=== PATIENT | male | born 1960 | race Caucasian/White ===

== ENCOUNTER 2021-10-04 10:54 | Inpatient (IN) ==
[2021-10-04 11:26] LABS: Basophils # (auto) 0.06 K/uL (0-0.2); Basophils % (auto) 0.5 %; Eosinophils # (auto) 0.03 K/uL (0-0.50); Eosinophils % (auto) 0.3 %; Immature Granulocytes # (auto) 0.13 K/uL (0.00-0.02); Immature Granulocytes % (auto) 1.2 %; Lymphocytes # (auto) 1.43 K/uL (1.2-3.4); Lymphocytes % (auto) 12.7 %; Mean Corpuscular Hemoglobin 30.9 pg (25.0-34.0); Mean Corpuscular Volume 96.5 fL (80.0-100.0); Mean Platelet Volume 9.5 fL (9.4-12.4); Monocytes # (auto) 1.09 K/uL (0.24-0.82); Monocytes % (auto) 9.7 %; Neutrophils # (auto) 8.54 K/uL (1.4-6.5); Neutrophils % (auto) 75.6 %; Platelet Count 280 K/uL (130-400); RDW Coefficient of Variation 18.6 % (11.5-14.5); RDW Standard Deviation 65.6 fL (36.4-46.3); Red Blood Count 2.59 M/uL (4.63-6.08); White Blood Count 11.28 K/ul (4.8-10.8)
--- NOTE | 2021-10-04 11:27 | Emergency Department Note ---
Impression & Plan Cholangiocarcinoma, Perihepatic abscess, Fall, Weakness, Pleural effusion, Anemia ED Provider Note NAME: SUSANNE WHITAKER AGE: 61 SEX: M : 1960 ARRIVES VIA: Walk-In INFORMANT: Patient ED PROVIDER(S): Julio Jain DO CHIEF COMPLAINT: weakness and leg swelling HPI: Patient is a 61-year-old male who presents the ER with a past medical history of cholangiocarcinoma, peritoneal carcinoma, hypertension who has stopped chemo and recently discharged from [facility] following being diagnosed with perihepatic abscesses and having IR drainage ertapenem and vancomycin through his right PICC line. He was discharged yesterday from [facility]. Upon getting home yesterday he fell. He had to have EMS help him get up from the ground. He is unable to take care of himself and consequently brought him in. He did not hit his head or neck. He denies any head or neck pain. No chest pain or shortness of breath. He admits to pain at the site of the drain placement but notes that has been unchanged since the surgery. Denies any new nausea or vomiting. No dysuria urgency or frequency. He does feel weak in the bilateral legs. He admits to the significant swelling in his legs preventing him from putting shoes on as he has to walk with modified shoes to help him get around. ROS: See above HPI for pertinent positives & negatives. A total of 10 systems reviewed and were otherwise negative. PAST MEDICAL HISTORY:See Below PAST SURGICAL HISTORY:See Below FAMILY HISTORY:See Below SOCIAL HISTORY:See Below HOME MEDICATIONS:See Below ALLERGIES:See Below VITALS:See Below PHYSICAL EXAMINATION: GENERAL: Sitting up in bed, alert, chronically ill-appearing, disheveled EYE EXAM: normal conjunctiva. PERRL and EOM's grossly intact. OROPHARYNX: no exudate, no erythema, lips, buccal mucosa, and tongue normal and mucous membranes are moist NECK: supple, no nuchal rigidity, no adenopathy, non-tender LUNGS: Clear to auscultation. Normal chest wall mechanics HEART: no murmurs, S1 normal and S2 normal ABDOMEN: abdomen soft, non-tender, normo-active bowel sounds, no masses, no rebound or guarding. BACK: Back is symmetrical on inspection and there is no deformity, no midline tenderness, no CVA tenderness. SKIN: no rashes and no bruising UPPER EXTREMITIES: upper extremities are grossly normal. LOWER EXTREMITIES: No pitting edema. NEURO EXAM: Normal sensorium, cranial nerves II-XII grossly intact, normal speech, no gross weakness of arms, no gross weakness of legs. MEDICAL DECISION MAKING: Patient is a 61-year-old male who presents ER for above-stated complaint. IV was established blood work was obtained. Labs show mild leukocytosis of 11,000 and mild anemia at 8. Hemoglobin of 8 is fairly consistent with the previous and [facility] system. BMP along with LFTs was unremarkable. Calcium was low. Troponin was negative. Lipase was normal. Chest x-ray with pleural effusion. X-ray of the pelvis was unremarkable. Patient does need placement and was just discharged from [facility]. Discussed with hospitalist for further evaluation as we are unable to place from the ER. Triage Nursing notes reviewed. Limited review of prior medical records performed Vital Signs: reviewed and remarkable for no significant abnormalities Differential diagnosis: Infection, dehydration, metabolic abnormality, hypo/hyperglycemia, electrolyte disturbance, anemia, hypoxia, cardiac sources, intracerebral event, toxicologic, neurologic, as well as other pathologies. ER treatment provided: See below Diagnostics interpreted by me: ECG: Sinus rhythm rate of 61 Left axis No PVCs QTC 483 Cardiac Monitoring: An order was placed for continuous cardiac monitoring. The monitor shows a rate of 82 with sinus rhythm. Laboratory studies: As stated above and show below. Imaging studies: X-ray of the pelvis and chest show pleural effusion Consultation(s): Discussed with hospitalist for further evaluation Procedures: none Critical Care: None Past Med/Surg History Medical History (Updated 10/04/21 @ 15:24 by Julio Jain DO) Arthritis Cholangiocarcinoma Epilepsy Hypertension Obesity Perihepatic abscess Peritoneal carcinoma Pre-diabetes Psoriasis Psoriatic arthropathy Surgical History (Updated 10/04/21 @ 09:20 by Estelita Robles RN) History of ERCP History of total left knee replacement History of total right knee replacement Hx of colonoscopy Hx of colonoscopy Family History (Updated 10/04/21 @ 13:13 by Ericka Kennedy PA-C) Father PAD (peripheral artery disease) Social History (Updated 10/04/21 @ 13:13 by Ericka Kennedy PA-C) Smoking Status: Never smoker Hx Alcohol Use: No Hx Substance Use: No Preferred Language: Czech Feels Safe at Home: No Allergies Allergies Allergy/AdvReac Type Severity Reaction Status Date / Time No Known Allergies Allergy Unverified 10/04/21 08:44 Home Meds Home Medications Medication Instructions Recorded Confirmed acetaminophen 500 mg tablet 500 mg PO QID PRN 10/04/21 10/04/21 famotidine 20 mg tablet 20 mg PO DAILY 10/04/21 10/04/21 oxycodone 10 mg tablet,extended 10 mg PO Q8 PRN 10/04/21 10/04/21 release,12 hr Results & Data (ED) Vital Signs Vital Signs - 24 hr 10/04/21 10:57 10/04/21 11:29 10/04/21 14:55 Temperature 36.2 C L Temperature Source Temporal Artery Scan Pulse Rate 89 Respiratory Rate 16 Blood Pressure 118/72 Blood Pressure Mean 87 Blood Pressure Position Sitting Pulse Oximetry 96 96 96 Oxygen Delivery Method Room Air Room Air Room Air Sepsis Recent Fever Within 48 Hours No Sepsis New/Unexplained Change in Mental Status No Sepsis Action Taken by Nursing No Action Required Laboratory Data Result diagrams: 10/04/21 11:15 10/04/21 11:15 Lab Results 10/04/21 10/04/21 10/04/21 Range/Units 11:15 11:15 12:10 WBC 11.28 H (4.8-10.8) K/ul RBC 2.59 L (4.63-6.08) M/uL Hgb 8.0 L (14.0-18.0) g/dl Hct 25.0 L (40.1-51.0) % MCV 96.5 (80.0-100.0) fL MCH 30.9 (25.0-34.0) pg MCHC 32.0 (32.0-36.0) g/dL RDW Std Deviation 65.6 H (36.4-46.3) fL RDW Coeff of [place] 18.6 H (11.5-14.5) % Plt Count 280 (130-400) K/uL MPV 9.5 (9.4-12.4) fL Immature Gran % (Auto) 1.2 % Neut % (Auto) 75.6 % Lymph % (Auto) 12.7 % [place] % (Auto) 9.7 % Eos % (Auto) 0.3 % Baso % (Auto) 0.5 % Neut # (Auto) 8.54 H (1.4-6.5) K/uL Lymph # (Auto) 1.43 (1.2-3.4) K/uL [place] # (Auto) 1.09 H (0.24-0.82) K/uL Eos # (Auto) 0.03 (0-0.50) K/uL Baso # (Auto) 0.06 (0-0.2) K/uL Immature Gran # (Auto) 0.13 H (0.00-0.02) K/uL Sodium 135 L (136-145) mmol/L Potassium 3.8 (3.5-5.1) mmol/L Chloride 107 (98-107) mmol/L Carbon Dioxide 24 (21-32) mmol/L Anion Gap 4 (3-11) BUN 13 (6-23) mg/dl Creatinine 0.86 (0.6-1.4) mg/dl Est Cr Clr Drug Dosing Not Reportable Est GFR ( Amer) 108.5 ml/min Est GFR (Non-Af Amer) 93.6 ml/min BUN/Creatinine Ratio 15.1 (10-20) Glucose 85 (70-99(Fasting)) mg/dl Calcium 7.6 L (8.5-10.1) mg/dl Total Bilirubin 0.6 (0.2-1.0) mg/dl AST 53 H (13-39) U/L ALT 30 (7-52) U/L Alkaline Phosphatase 133 H (34-104) U/L Troponin I High Sens 7.4 (0-20) pg/ml B-Natriuretic Peptide (0-100) pg/ml Total Protein 6.9 (6.0-8.3) gm/dl Albumin 1.8 L (3.4-5.0) gm/dl Globulin 5.1 H (2.5-4.0) gm/dl Albumin/Globulin Ratio 0.4 L (0.9-2) Lipase 17 (11-82) U/L SARS-CoV-2, RNA, NAAT NEGATIVE (NEGATIVE) 10/04/21 Range/Units 12:51 WBC (4.8-10.8) K/ul RBC (4.63-6.08) M/uL Hgb (14.0-18.0) g/dl Hct (40.1-51.0) % MCV (80.0-100.0) fL MCH (25.0-34.0) pg MCHC (32.0-36.0) g/dL RDW Std Deviation (36.4-46.3) fL RDW Coeff of [place] (11.5-14.5) % Plt Count (130-400) K/uL MPV (9.4-12.4) fL Immature Gran % (Auto) % Neut % (Auto) % Lymph % (Auto) % [place] % (Auto) % Eos % (Auto) % Baso % (Auto) % Neut # (Auto) (1.4-6.5) K/uL Lymph # (Auto) (1.2-3.4) K/uL [place] # (Auto) (0.24-0.82) K/uL Eos # (Auto) (0-0.50) K/uL Baso # (Auto) (0-0.2) K/uL Immature Gran # (Auto) (0.00-0.02) K/uL Sodium (136-145) mmol/L Potassium (3.5-5.1) mmol/L Chloride (98-107) mmol/L Carbon Dioxide (21-32) mmol/L Anion Gap (3-11) BUN (6-23) mg/dl Creatinine (0.6-1.4) mg/dl Est Cr Clr Drug Dosing Est GFR ( Amer) ml/min Est GFR (Non-Af Amer) ml/min BUN/Creatinine Ratio (10-20) Glucose (70-99(Fasting)) mg/dl Calcium (8.5-10.1) mg/dl Total Bilirubin (0.2-1.0) mg/dl AST (13-39) U/L ALT (7-52) U/L Alkaline Phosphatase (34-104) U/L Troponin I High Sens (0-20) pg/ml B-Natriuretic Peptide 48 (0-100) pg/ml Total Protein (6.0-8.3) gm/dl Albumin (3.4-5.0) gm/dl Globulin (2.5-4.0) gm/dl Albumin/Globulin Ratio (0.9-2) Lipase (11-82) U/L SARS-CoV-2, RNA, NAAT (NEGATIVE) Administered Medications Vancomycin HCl 2,250 mg/ (Sodium Chloride) 545 mls @ 200 mls/hr IV NOW ONE Stop: 10/04/21 15:57 Last Admin: 10/04/21 14:19 Dose: 200 mls/hr Documented by: [id number] Discontinued Medications Ertapenem (Invanz) 10 mls @ 2 mls/min IV NOW STA Stop: 10/04/21 11:45 Last Admin: 10/04/21 12:02 Dose: 2 mls/min Documented by: [id number] Imaging Data Radiologist's Impression: Pelvis X-Ray 10/04/21 11:12 XR pelvis 1-2V routine CLINICAL HISTORY: fall. Right-sided pelvic pain COMPARISON STUDY: No previous studies for comparison. TECHNIQUE: [2 AP views of the pelvis FINDINGS: There is no evidence for an acute fracture. However, the femoral necks or not elongated as the legs were not in internal rotation. The hip joint spaces are maintained bilaterally and the bones are in anatomic alignment. The SI joints are intact bilaterally. The remaining visualized bones of the pelvis are intact. No focal soft tissue abnormalities identified. IMPRESSION: 1. No acute abnormality. However, if pain persists, CT of the pelvis could be obtained for further evaluation. ACT 112: Negative or not required by law. Electronically signed by: Rory Shaffer M.D. 10/04/2021 11:55 AM Chest X-Ray 10/04/21 11:13 XR chest 1V portable CLINICAL HISTORY: Weakness with leg swelling. Evaluate for congestive heart failure. COMPARISON STUDY: No previous studies for comparison. TECHNIQUE: 1 view of the chest FINDINGS: Single frontal view of the chest demonstrates the cardiomediastinal silhouette to be within normal limits. There is evidence for a moderate size right pleural effusion with compressive atelectasis/collapse involving the right middle and right lower lobes. Mild central vascular congestion is also present. There is no evidence for left pleural effusion. No confluent alveolar opacities are identified. There is no acute osseous pathology. IMPRESSION: 1. Moderate size right pleural effusion with compressive atelectasis/collapse involving the right middle and right lower lobes. 2. Mild central vascular congestion. ACT 112: Negative or not required by law. Electronically signed by: Rory Shaffer M.D. 10/04/2021 11:56 AM Discharge Plan Visit Data Chief Complaint: Neuro Symptoms/Deficit Stated Complaint: FALLS,CAN'T WALK, CAN'T STAND,HX OF SEPSIS ED Provider: Julio Jain Discharge Problem: Cholangiocarcinoma, Perihepatic abscess, Fall, Weakness, Pleural effusion, Anemia Discharge Instructions Interventions: ED Discharge Assessment Last Done: 10/04/21 14:55
[2021-10-04] MEDS ORDERED: ERTAPENEM SODIUM 10 ML IV STA (11:41)
[2021-10-04 11:50] LABS: Alanine Aminotransferase 30 U/L (7-52); Albumin Globulin Ratio 0.4 (0.9-2); Albumin Level 1.8 gm/dl (3.4-5.0); Alkaline Phosphatase 133 U/L (34-104); Anion Gap 4 (3-11); Aspartate Aminotransferase 53 U/L (13-39); BUN Creatinine Ratio 15.1 (10-20); Bilirubin,Total 0.6 mg/dl (0.2-1.0); Blood Urea Nitrogen 13 mg/dl (6-23); Calcium 7.6 mg/dl (8.5-10.1); Carbon Dioxide 24 mmol/L (21-32); Chloride 107 mmol/L (98-107); Est GFR (African American) 108.5 ml/min; Est GFR (Non-African American) 93.6 ml/min; Globulin 5.1 gm/dl (2.5-4.0); Glucose 85 mg/dl (70-99(Fasting)); Lipase 17 U/L (11-82); Potassium 3.8 mmol/L (3.5-5.1); Sodium 135 mmol/L (136-145); Total Protein 6.9 gm/dl (6.0-8.3)
[2021-10-04 11:56] LABS: Troponin I High Sensitivity 7.4 pg/ml (0-20)
--- NOTE | 2021-10-04 11:57 | XRay Report ---
XR pelvis 1-2V routine CLINICAL HISTORY: fall. Right-sided pelvic pain COMPARISON STUDY: No previous studies for comparison. TECHNIQUE: [2 AP views of the pelvis FINDINGS: There is no evidence for an acute fracture. However, the femoral necks or not elongated as the legs w ere not in internal rotation. The hip joint spaces are maintained bilaterally and the bones are in an atomic alignment. The SI joints are intact bilaterally. The remaining visualized bones of the pelvis are intact. No focal soft tissue abnormalities identified. IMPRESSION: 1. No acute abnormality. However, if pain persists, CT of the pelvis could be obtained for further ev aluation. ACT 112: Negative or not required by law. Electronically signed by: Rory Shaffer M.D. 10/04/2021 11:55 AM
--- NOTE | 2021-10-04 11:58 | XRay Report ---
XR chest 1V portable CLINICAL HISTORY: Weakness with leg swelling. Evaluate for congestive heart failure. COMPARISON STUDY: No previous studies for comparison. TECHNIQUE: 1 view of the chest FINDINGS: Single frontal view of the chest demonstrates the cardiomediastinal silhouette to be within normal li mits. There is evidence for a moderate size right pleural effusion with compressive atelectasis/colla pse involving the right middle and right lower lobes. Mild central vascular congestion is also presen t. There is no evidence for left pleural effusion. No confluent alveolar opacities are identified. Th ere is no acute osseous pathology. IMPRESSION: 1. Moderate size right pleural effusion with compressive atelectasis/collapse involving the right mid dle and right lower lobes. 2. Mild central vascular congestion. ACT 112: Negative or not required by law. Electronically signed by: Rory Shaffer M.D. 10/04/2021 11:56 AM
[2021-10-04] MEDS ORDERED: VANCOMYCIN CONSULT ACTIVE PRN (13:14)
[2021-10-04] MEDS ORDERED: VANCOMYCIN HCL 2,250 MG in SODIUM CHLORIDE 0.9% 500 ML IV ONE (13:14)
--- NOTE | 2021-10-04 13:19 | History & Physical Report ---
Date of Service October 04, 2021 Assessment & Plan (1) Fall: (2) Weakness: (3) Hypoalbuminemia: (4) Anemia: (5) Bilateral lower extremity edema: (6) Pleural effusion: Plan: Patient presented with fall s/p weakness related to recent perihepatic abscess drainage. He is unable to take care of himself at this time due to severe weakness. Admit for Obs and probable placement CM referral placed. Patient also noted to have severe edema on admission with very low albumin. Vascular congestion seen on CXR without history of CHF. Patient has been on recent chemotherapy for cholangiocarcinoma and peritoneal carcinoma. Will check BNP and Echocardiogram. Start Lasix 20 mg IV x 1 dose. Start Albumin Q8h x 2 days. Reassess fluid level in AM Recheck BMP, CBC, Mag, Phos in AM PT/OT Continue to monitor BP. Was previously on lisinopril, but taken off during hospitalization. If BP begins to climb, consider restarting (7) Cholangiocarcinoma: (8) Peritoneal carcinoma: (9) Perihepatic abscess: Plan: Continue to hold chemotherapy agents as planned by [facility] while active infection Continue Ertapenem and Vancomycin per [facility] ID via PICC line Continue routine care of IR drain and PICC line (10) DVT prophylaxis: Plan: SQ Heparin History of Present Illness Chief Complaint: Weakness, fall Primary Care Provider: Murtaza Bazan DO Patient is a 61 yo male with recent history of cholangiocarcinoma diagnosed earlier this year along with peritoneal carcinoma. Today, he presented to the ER after being at home and falling last night. He stood up off of the couch at home, and he fell on his bottom. His feet went out from under him, but he did not have a syncopal episode. He did not hit his head. His buttocks does not hurt where he fell. He fell onto carpet. He notes that his feet have been very swollen since he got home. He recently was seen at [place] [facility] for abdominal pain on 09/23. He had a CT scan done which showed the perihepatic abscess. He was then transferred to [place] for IR drainage. He had the abscess drained, and culture grew MRSA. He required second drainage. He was discharged home from [facility] yesterday morning with a PICC line and plan for abx at [facility]. He has been weak/tired since prior admission, and even more when he got home. He has had some mild dry feeling in his throat but no sore throat or trouble swallowing. No chest pain, palpitations. He does have some right sided abdominal pain into the mid abdomen where his IR drain is located and where the abscess was. No dysuria. No diarrhea or constipation- he has been taking Miralax. No calf pain B/L. He does have a scratch on his back as well s/p fall. No other injury. Since admission, note that his CXR showed moderate right pleural effusion with atelectasis in the RML and RLL. Mild vascular congestion noted as well. His friend, Stacie ([phone]) is at the bedside with him. He would like her to be his POA if needed. Allergies Allergy/AdvReac Type Severity Reaction Status Date / Time No Known Allergies Allergy Unverified 10/04/21 08:44 Home Medications Medication Instructions Recorded Confirmed Type acetaminophen 500 mg tablet 500 mg PO QID PRN 10/04/21 10/04/21 History famotidine 20 mg tablet 20 mg PO DAILY 10/04/21 10/04/21 History oxycodone 10 mg tablet,extended 10 mg PO Q8 PRN 10/04/21 10/04/21 History release,12 hr Past Med/Surg History Medical History (Updated 10/04/21 @ 15:24 by Julio Jain DO) Arthritis Cholangiocarcinoma Epilepsy Hypertension Obesity Perihepatic abscess Peritoneal carcinoma Pre-diabetes Psoriasis Psoriatic arthropathy Surgical History (Updated 10/04/21 @ 09:20 by Estelita Robles RN) History of ERCP History of total left knee replacement History of total right knee replacement Hx of colonoscopy Hx of colonoscopy Family History (Updated 10/04/21 @ 13:13 by Ericka Kennedy PA-C) Father PAD (peripheral artery disease) Social History (Updated 10/04/21 @ 13:13 by Ericka Kennedy PA-C) Smoking Status: Former smoker Hx Alcohol Use: No Hx Substance Use: No Preferred Language: Khmer Communication Ability: Effective Geophysical Support Specialist Required: No Beliefs That Will Affect Care: None Current Living Situation: Alone Feels Safe at Home: Yes Safety Concerns: Feels Safe At This Time Assistive Devices: Cane Review of Systems Review of Systems: All others negative except mentioned in HPI Physical Exam Physical Exam: See attending's addendum for physical exam findings. Results & Data Results & Data ([facility]) Vital Signs (Past 12 Hours) Vital Signs Temp Pulse Resp BP Pulse Ox 10/04/21 11:29 96 10/04/21 10:57 36.2 C L 89 16 118/72 96 Laboratory Results Laboratory Results - last 24 hr 10/04/21 10/04/21 10/04/21 11:15 11:15 12:10 WBC 11.28 H RBC 2.59 L Hgb 8.0 L Hct 25.0 L MCV 96.5 MCH 30.9 MCHC 32.0 RDW Std Deviation 65.6 H RDW Coeff of [place] 18.6 H Plt Count 280 MPV 9.5 Immature Gran % (Auto) 1.2 Neut % (Auto) 75.6 Lymph % (Auto) 12.7 [place] % (Auto) 9.7 Eos % (Auto) 0.3 Baso % (Auto) 0.5 Neut # (Auto) 8.54 H Lymph # (Auto) 1.43 [place] # (Auto) 1.09 H Eos # (Auto) 0.03 Baso # (Auto) 0.06 Immature Gran # (Auto) 0.13 H Sodium 135 L Potassium 3.8 Chloride 107 Carbon Dioxide 24 Anion Gap 4 BUN 13 Creatinine 0.86 Est Cr Clr Drug Dosing Not Reportable Est GFR ( Amer) 108.5 Est GFR (Non-Af Amer) 93.6 BUN/Creatinine Ratio 15.1 Glucose 85 Calcium 7.6 L Total Bilirubin 0.6 AST 53 H ALT 30 Alkaline Phosphatase 133 H Troponin I High Sens 7.4 B-Natriuretic Peptide Total Protein 6.9 Albumin 1.8 L Globulin 5.1 H Albumin/Globulin Ratio 0.4 L Lipase 17 SARS-CoV-2, RNA, NAAT NEGATIVE 10/04/21 12:51 WBC RBC Hgb Hct MCV MCH MCHC RDW Std Deviation RDW Coeff of [place] Plt Count MPV Immature Gran % (Auto) Neut % (Auto) Lymph % (Auto) [place] % (Auto) Eos % (Auto) Baso % (Auto) Neut # (Auto) Lymph # (Auto) [place] # (Auto) Eos # (Auto) Baso # (Auto) Immature Gran # (Auto) Sodium Potassium Chloride Carbon Dioxide Anion Gap BUN Creatinine Est Cr Clr Drug Dosing Est GFR ( Amer) Est GFR (Non-Af Amer) BUN/Creatinine Ratio Glucose Calcium Total Bilirubin AST ALT Alkaline Phosphatase Troponin I High Sens B-Natriuretic Peptide 48 Total Protein Albumin Globulin Albumin/Globulin Ratio Lipase SARS-CoV-2, RNA, NAAT Diagnostic Findings CXR: IMPRESSION: 1. Moderate size right pleural effusion with compressive atelectasis/collapse involving the right middle and right lower lobes. 2. Mild central vascular congestion. Pelvic XR: IMPRESSION: 1. No acute abnormality. However, if pain persists, CT of the pelvis could be obtained for further evaluation. Supervising Physician Co-Signing Physician Notes 61 yo M w/ PMH of cholangiocarcinoma/peritoneal carcinoma presented 10/04 to our ED w/ c/o fall yesterday and weakness/unable to take care of self. He was discharged yesterday from [place] on IV antibiotic after IR drainage of his hepatic abscess and at home he fell on buttocks/denies hitting his head. Patient also complains of swelling BLE since last week. He reports being tired and weak. Admitting CXR with vascular congestion, BLE edema 2-3+, hypoalbuminemia, normal BNP. Adding albumin, giving IV Lasix, consider IV Lasix in a.m. after clinical assessment. Getting echo. Telemetry monitoring. Weak/tired: PT/OT, likely need placement Hepatic abscess on antibiotics from [place], will continue vancomycin and ertapenem. Patient to follow-up with ID as an outpatient. Follow-up labs in a.m., CM consulted for placement. Follow-up with oncology as an outpatient. Upon Exam GENERAL: Alert and oriented x3. NAD, on RA. Obese HEENT: No pallor, no icterus. Pupils equal, round and reactive to light. Oral mucosa moist. NECK: No JVD, no neck masses. HEART: S1 and S2 heard. Regular rate and rhythm. No murmur, no gallop. RESPIRATORY SYSTEM: Normal AP diameter. No accessory muscle use. No wheezing, no crackles. decreased Rt mid and lower lungs breath sounds. ABDOMEN: Soft, bowel sounds present, nontender, no distention. Rt hepatic drain w/ minimal erythema at port of entry, no significant tenderness. Pus and serous hepatic drain approx 40 ml noted in the bag. CENTRAL NERVOUS SYSTEM: No facial droop. Speech is clear. Obeys simple commands. Moves extremities. EXTREMITIES: 2-3+ BLE edema, no erythema seen. b/l hands with psoriatic arthritic changes. I have seen and examined the patient and have discussed the case with the provider above. I agree with the assessment and plan as stated.
[2021-10-04] MEDS ORDERED: FUROSEMIDE INJ 20 MG/2 ML VIAL IV ONE ×2 (13:27→16:00)
[2021-10-04] MEDS ORDERED: ALUMINUM/MAGNESIUM SUSP 30 ML UDC PO PRN (13:28)
[2021-10-04] MEDS: ACETAMINOPHEN 325 MG TAB PO PRN ×2 (15:42→23:04)
[2021-10-04] MEDS: ALBUMIN 25% 100 mL 25 GM/100 ML VIAL IV SCH ×2 (17:07→23:08)
--- NOTE | 2021-10-04 17:56 | Pharmacy Report ---
Pharmacy PK ABX Note - Date of Service October 04, 2021 - Assessment and Plan Assessment 61 year old M receiving vancomycin and ertapenem for treatment of post-ERCP liver abscess (MRSA and mixed aerobic anaerobic milady). Patient recently diagnosed with metastatic cholangiocarcinoma (delaying chemotherapy at this time in light of infection). Recently hospitalized at [facility] in [place] (09/24-10/03/21). Vancomycin/ertapenem initiated during that time by ID with recommendations to continue vancomycin 2 g IV q24h and ertapenem 1 g IV q24h as an outpatient. Unfortunately, patient received both doses of vancomycin/ertapenem in the [facility] this morning and then given an additional dose of each upon arrival to ED this afternoon. Pertinent microbiologic data includes: liver abscess (09/24) - MRSA. Day # 9 of antimicrobial therapy (continued from prior hospitalizat ion/outpatient setting). Treatment to be continued until 11/09/21 per [facility] ID. Plan Vancomycin * In light of inadvertent additional dose of vancomycin in ED, will hold off on ordering maintenance dose of vancomycin and will obtain random level tomorrow morning to help guide ongoing dosing. Ertapenem * Discussed with hospitalist, will time out next dose of ertapenem slightly to be given tomorrow afternoon. Pharmacy will continue to follow and will adjust dose/frequency as necessary. Thank you. Pharmacy has transitioned to AUC monitoring for vancomycin. AUC/PEDRO is the preferred PK/PD target and is associated with decreased risk of nephrotoxicity compared to traditional trough targets.
[2021-10-04 22:33] LABS: Hematocrit (blood only) 25.1 % (40.1-51.0); Hemoglobin 8.1 g/dl (14.0-18.0)
[2021-10-04] MEDS: HEPARIN SOD 5,000 UNIT/0.5 ML VIAL SQ SCH (23:03)
[2021-10-05] MEDS: oxyCODONE HCL IR 5 MG TAB (IMMEDIATE RELEASE) PO PRN ×2 (04:25→23:41)
[2021-10-05] MEDS: ALBUMIN 25% 100 mL 25 GM/100 ML VIAL IV SCH ×3 (06:25→23:06)
[2021-10-05 06:50] LABS: Albumin Globulin Ratio 0.5 (0.9-2); Albumin Level 2.2 gm/dl (3.4-5.0); BUN Creatinine Ratio 15.7 (10-20); Bilirubin,Total 0.7 mg/dl (0.2-1.0); Calcium 7.6 mg/dl (8.5-10.1); Creatinine Clr Calc Pharmacy 125.9 ml/min; Est GFR (African American) 110.1 ml/min; Globulin 4.4 gm/dl (2.5-4.0); Magnesium 1.9 mg/dl (1.7-2.4); Phosphorus 3.2 mg/dl (2.5-4.9); Potassium 3.7 mmol/L (3.5-5.1); Total Protein 6.6 gm/dl (6.0-8.3)
[2021-10-05 07:14] LABS: Hematocrit (blood only) 23.7 % (40.1-51.0); Hemoglobin 7.6 g/dl (14.0-18.0); Mean Corpuscular Hemoglobin 31.1 pg (25.0-34.0); Mean Corpuscular Hgb Conc 32.1 g/dL (32.0-36.0); Mean Corpuscular Volume 97.1 fL (80.0-100.0); Mean Platelet Volume 10.1 fL (9.4-12.4); Platelet Count 257 K/uL (130-400); RDW Coefficient of Variation 18.3 % (11.5-14.5); RDW Standard Deviation 64.3 fL (36.4-46.3); Red Blood Count 2.44 M/uL (4.63-6.08); White Blood Count 9.25 K/ul (4.8-10.8)
[2021-10-05] MEDS: FAMOTIDINE 20 MG TAB PO SCH (08:13)
[2021-10-05] MEDS: ACETAMINOPHEN 325 MG TAB PO PRN ×2 (08:13→18:17)
[2021-10-05] MEDS: HEPARIN SOD 5,000 UNIT/0.5 ML VIAL SQ SCH ×2 (08:15→23:09)
--- NOTE | 2021-10-05 10:12 | Pharmacy Report ---
Pharmacy PK ABX Note - Date of Service October 05, 2021 - Assessment and Plan Assessment * 61 year old M receiving vancomycin and ertapenem for treatment of post-ERCP liver abscess (MRSA and mixed aerobic anaerobic milady). * Patient recently diagnosed with metastatic cholangiocarcinoma (delaying chemotherapy at this time in light of infection). Recently hospitalized at [facility] in [place] (09/24-10/03/21). Vancomycin/ertapenem initiated during that time by ID with recommendations to continue vancomycin 2 g IV q24h and ertapenem 1 g IV q24h as an outpatient. * Unfortunately, patient received both doses of vancomycin/ertapenem in the MTU this morning and then given an additional dose of each upon arrival to ED yesterday * Pertinent microbiologic data includes: liver abscess (09/24) - MRSA. * Day # 10 of antimicrobial therapy (continued from prior hospitalizatio n/outpatient setting). Treatment to be continued until 11/09/21 per [facility]. Vancomycin * Random level this AM was elevated, consistent with two doses yesterday. Will delay ongoing vancomycin until this afternoon, when level likely to be in the therapeutic range. Will then give small supplemental dose, meant to transition the patient back to the originally planned 2 g IV qAM dose, which is likely to produce a therapeutic AUC * Random level tomorrow AM to ensure adequate clearance prior to resuming prior dose Plan * Vancomycin 1000 mg IV x1 @1400 today * Random vancomycin level with AM labs * Vancomycin 2000 mg IV daily@09 ongoing starting tomorrow Pharmacy will continue to follow and will adjust dose/frequency as necessary. Thank you. Pharmacy has transitioned to AUC monitoring for vancomycin. AUC/PEDRO is the preferred PK/PD target and is associated with decreased risk of nephrotoxicity compared to traditional trough targets.
--- NOTE | 2021-10-05 11:44 | Communication Note ---
Date of Service: October 05, 2021 Flush the intra-abdominal drain with 10ml of sterile saline daily. Dr. Miley Sharma
--- NOTE | 2021-10-05 12:14 | Electrocardiogram Report ---
Test Reason : Blood Pressure : / mmHG Vent. Rate : 086 BPM Atrial Rate : 086 BPM P-R Int : 168 ms QRS Dur : 096 ms QT Int : 404 ms P-R-T Axes : 011 -22 007 degrees QTc Int : 483 ms Normal sinus rhythm Low voltage QRS Poor R wave progression, consider anterior MS vs. lead placement vs. LVH Abnormal ECG No previous ECGs available Confirmed by Wesley Solis ([id number]) on 10/05/2021 12:14:20 PM Referred By: REFERRED SELF Confirmed By:Michele Solis
--- NOTE | 2021-10-05 12:17 | Electrocardiogram Report ---
Test Reason : Blood Pressure : / mmHG Vent. Rate : 091 BPM Atrial Rate : 091 BPM P-R Int : 152 ms QRS Dur : 102 ms QT Int : 390 ms P-R-T Axes : 015 -06 019 degrees QTc Int : 479 ms Normal sinus rhythm Possible Inferior infarct , age undetermined Abnormal ECG When compared with ECG of 04-OCT-2021 11:24, (unconfirmed) No significant change was found Confirmed by Wesley Solis ([id number]) on 10/05/2021 12:17:29 PM Referred By: REFERRED SELF Confirmed By:Michele Solis
--- NOTE | 2021-10-05 13:54 | Hospitalist Progress Note ---
Date of Service October 05, 2021 Assessment & Plan (1) Perihepatic abscess: Plan: Admitted to [facility] on 09/24/2021 and discharged on 10/03/2021 Following IR drainage of perihepatic abscess He was discharged from [facility] on 10/03/2021 and was admitted with a fall secondary to weakness on 10/04/2021 at [facility] Has a PICC line and has been getting intravenous ertapenem and vancomycin which will be continued until 11/09/2021 Weekly CBC and BMP with vancomycin troughs will be done as an outpatient Instruction as per discharge summary Repeat CT tentatively at 4 weeks and will need IR follow-up for drain removal at that time If the drain output diminishes the CT can be done earlier than 4 weeks Not noted in the instructions that the drain should be flushed daily which is being done in this hospital Patient remains stable (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 Likely secondary to reactive from hepatic abscess Echo of the heart showed- EF of 60 to 65%, there is mild concentric LVH, and no significant valvular pathology (4) Fall: Plan: He is unable to take care of himself at this time due to severe weakness. Admit for Obs and probable placement PT OT for placement CM referral placed. (5) Weakness: Plan: Multifactorial Mainly secondary to carcinoma/chemotherapy/hepatic abscess History of hypertension Continue to monitor BP. Was previously on lisinopril, but taken off during hospitalization. If BP begins to climb, consider restarting (6) Hypoalbuminemia: (7) Anemia: (8) Bilateral lower extremity edema: Plan: Secondary to lack of mobility, hypoalbuminemia, decreased venous return but no heart failure (9) Peritoneal carcinoma: (10) DVT prophylaxis: Plan: SQ Heparin Admission and Anticipated Discharge Date Admission Date: October 05, 2021 Subjective 10/05/2021 The patient was seen and examined in medical telemetry unit He remains generally weak and lethargic but otherwise denies any significant symptoms Grossly edematous in the legs Denies any chest pain, abdominal pain, nausea or vomiting or any shortness of breath Review of Systems Review of Systems: All systems reviewed and are unremarkable except as noted below Gastrointestinal: Mild abdominal discomfort. Status post intra-abdominal drain in situ Neurologic: Generally weak and lethargic Physical Exam Physical Exam: Sitting on a chair with lethargy but denies any acute distress Constitutional: well developed, well nourished, + ill appearing and + obese Eyes: PERRL, conjunctivae normal, anicteric sclerae ENMT: external ear and nose normal, oropharynx normal Neck: trachea midline, no thyromegaly Respiratory: no respiratory distress Auscultation: + diminished lung sounds (Mostly on the right lower lung) and + crackles (Minimal crackles at the bases) Cardiovascular: Rate/Rhythm: regular rate and regular rhythm; not tachycardic Heart Sounds: normal S1 and normal S2; no murmur Extremities: + edema (2+ edema bilaterally) Gastrointestinal (Abdomen): Inspection/Auscultation: + abdomen distended and normal bowel sounds; + abdomen abnormal to inspection (Has right upper quadrant drain in situ) Musculoskeletal: No acute arthritis in any joint Neurologic: Alert, awake and oriented x3, generally very weak and lethargic Lymphatic: no cervical or axillary lymphadenopathy Results & Data Results & Data ([facility]) Vital Signs (Past 12 Hours) Vital Signs Temp Pulse Pulse Resp BP Pulse Ox 10/05/21 11:23 36.6 C 65 18 112/68 96 10/05/21 07:56 94 H 10/05/21 07:15 37.1 C 90 18 145/84 H 92 10/05/21 04:15 36.5 C 91 H 20 123/71 93 Laboratory Results Short CBC 10/04/21 10/05/21 Range/Units 22:20 05:14 WBC 9.25 (4.8-10.8) K/ul Hgb 8.1 L 7.6 L (14.0-18.0) g/dl Hct 25.1 L 23.7 L (40.1-51.0) % Plt Count 257 (130-400) K/uL BMP 10/05/21 05:14 Sodium 134 L Potassium 3.7 Chloride 105 Carbon Dioxide 26 BUN 13 Creatinine 0.83 Glucose 77 Calcium 7.6 L Liver Function 10/05/21 Range/Units 05:14 Total Bilirubin 0.7 (0.2-1.0) mg/dl AST 43 H (13-39) U/L ALT 24 (7-52) U/L Alkaline Phosphatase 125 H (34-104) U/L Albumin 2.2 L (3.4-5.0) gm/dl Medications Administered Current Inpatient Medications Acetaminophen (Acetaminophen 325 Mg Tab) 650 mg PO Q8H PRN PRN Reason: Pain or Fever Stop: 11/03/21 13:27 Last Admin: 10/05/21 08:13 Dose: 650 mg Documented by: Al Hydrox/Mg Hydrox/Simethicone (Aluminum/Magnesium Susp 30 Ml Udc) 15 ml PO Q4H PRN PRN Reason: Dyspepsia Stop: 11/03/21 13:27 Famotidine (Famotidine 20 Mg Tab) 20 mg PO DAILY AMANDA Stop: 11/04/21 08:59 Last Admin: 10/05/21 08:13 Dose: 20 mg Documented by: Heparin Sodium (Beef Lung) (Heparin 10 Unit/Ml 5 Ml Flush) 5 ml FLUSH PRN PRN PRN Reason: Flush Stop: 11/04/21 08:18 Heparin Sodium (Porcine) (Heparin Sod 5,000 Unit/0.5 Ml Vial) 5,000 units SQ Q12 AMANDA Stop: 11/03/21 20:59 Last Admin: 10/05/21 08:15 Dose: 5,000 units Documented by: Albumin Human (Albumin 25% 100 Ml) 25 gm in 100 mls @ 50 mls/hr IV Q8 AMANDA Stop: 10/06/21 07:59 Last Infusion: 10/05/21 08:33 Dose: Infused Documented by: Ertapenem 1,000 mg/ Syringe 10 mls @ 2 mls/min IV Q24H AMANDA Stop: 10/15/21 08:59 Vancomycin HCl 1,000 mg/ (Sodium Chloride) 270 mls @ 200 mls/hr IV DAILY@1400 ONE Stop: 10/05/21 15:20 Vancomycin HCl 2,000 mg/ (Sodium Chloride) 540 mls @ 200 mls/hr IV DAILY@0900 [facility] Stop: 10/16/21 08:59 Miscellaneous Information (Vancomycin Consult Active) 1 ea N/A UD PRN PRN Reason: Consult Stop: 11/03/21 13:13 Oxycodone HCl (Oxycodone Hcl Ir 5 Mg Tab (Immediate Release)) 5 mg PO Q8H PRN PRN Reason: MODERATE/SEVERE PAIN Stop: 10/18/21 17:30 Last Admin: 10/05/21 04:25 Dose: 5 mg Documented by: (1) Fall Encounter type: initial encounter Qualified Code(s): W19.XXXA - Unspecified fall, initial encounter (2) Anemia Anemia type: unspecified type Qualified Code(s): D64.9 - Anemia, unspecified
[2021-10-05] MEDS ORDERED: VANCOMYCIN HCL 1,000 MG in SODIUM CHLORIDE 0.9% 250 ML IV ONE (14:00)
[2021-10-05] MEDS: ERTAPENEM SODIUM 1,000 MG in SYRINGE 0 ML IV SCH (15:26)
[2021-10-05 18:35] LABS: Appearance Urine Clear (Clear); Bacteria Urine Automated Negative (Negative); Bilirubin Urine Negative (Negative); Blood Urine 1+ (Negative); Cast Urine Automated 0 /lpf (0-5); Color Urine Yellow; Glucose Urine UA Negative (Negative); Ketones Urine Negative (Negative); Leukocyte Esterase Urine Negative (Negative); Nitrite Urine Negative (Negative); Protein Urine Negative (Negative); Specific Gravity Urine 1.012 (1.000-1.030); Urobilinogen Urine Negative (Negative); pH Urine 6.5 (4.5-7.5)
[2021-10-06] MEDS: ACETAMINOPHEN 325 MG TAB PO PRN ×3 (05:07→23:38)
[2021-10-06] MEDS: ALBUMIN 25% 100 mL 25 GM/100 ML VIAL IV SCH (05:08)
[2021-10-06 07:51] LABS: Basophils # (auto) 0.06 K/uL (0-0.2); Basophils % (auto) 0.6 %; Eosinophils # (auto) 0.03 K/uL (0-0.50); Eosinophils % (auto) 0.3 %; Hematocrit (blood only) 24.4 % (40.1-51.0); Hemoglobin 7.9 g/dl (14.0-18.0); Immature Granulocytes # (auto) 0.07 K/uL (0.00-0.02); Immature Granulocytes % (auto) 0.8 %; Lymphocytes # (auto) 1.25 K/uL (1.2-3.4); Lymphocytes % (auto) 13.5 %; Mean Corpuscular Hgb Conc 32.4 g/dL (32.0-36.0); Mean Corpuscular Volume 95.7 fL (80.0-100.0); Mean Platelet Volume 10.1 fL (9.4-12.4); Monocytes # (auto) 0.89 K/uL (0.24-0.82); Monocytes % (auto) 9.6 %; Neutrophils # (auto) 6.97 K/uL (1.4-6.5); Neutrophils % (auto) 75.2 %; Platelet Count 242 K/uL (130-400); RDW Coefficient of Variation 17.8 % (11.5-14.5); RDW Standard Deviation 61.8 fL (36.4-46.3); Red Blood Count 2.55 M/uL (4.63-6.08); White Blood Count 9.27 K/ul (4.8-10.8)
[2021-10-06] MEDS: FAMOTIDINE 20 MG TAB PO SCH (08:00)
[2021-10-06] MEDS: HEPARIN SOD 5,000 UNIT/0.5 ML VIAL SQ SCH ×2 (08:00→20:21)
[2021-10-06] MEDS: VANCOMYCIN HCL 2,000 MG in SODIUM CHLORIDE 0.9% 500 ML IV SCH (08:23)
[2021-10-06 08:27] LABS: Albumin Globulin Ratio 0.7 (0.9-2); Albumin Level 2.8 gm/dl (3.4-5.0); BUN Creatinine Ratio 14.5 (10-20); Bilirubin,Total 0.7 mg/dl (0.2-1.0); Creatinine Clr Calc Pharmacy 135.2 ml/min; Est GFR (African American) 114.1 ml/min; Est GFR (Non-African American) 98.5 ml/min; Globulin 4.2 gm/dl (2.5-4.0); Magnesium 1.9 mg/dl (1.7-2.4); Potassium 3.8 mmol/L (3.5-5.1)
--- NOTE | 2021-10-06 08:49 | Pharmacy Report ---
Pharmacy PK ABX Note - Date of Service October 06, 2021 - Assessment and Plan Assessment * 61 year old M receiving vancomycin and ertapenem for treatment of post-ERCP liver abscess (MRSA and mixed aerobic anaerobic milady). * Patient recently diagnosed with metastatic cholangiocarcinoma (delaying chemotherapy at this time in light of infection). Recently hospitalized at [facility] in [place] (09/24-10/03/21). Vancomycin/ertapenem initiated during that time by ID with recommendations to continue vancomycin 2 g IV q24h and ertapenem 1 g IV q24h as an outpatient. * Unfortunately, patient received both doses of vancomycin/ertapenem in the MTU this morning and then given an additional dose of each upon arrival to ED yesterday * Pertinent microbiologic data includes: liver abscess (09/24) - MRSA. * Day # 11 of antimicrobial therapy (continued from prior hospitalizatio n/outpatient setting). Treatment to be continued until 11/09/21 per [facility] ID. Plan Vancomycin * Random level of 16.6 mcg/mL this am * Continue previous regimen of vanco 2000 mg IV q24h * Check next drug level on 10/08/21 with AM labs Ertapenem * Continue 1000 mg IV q24h Pharmacy will continue to follow and will adjust dose/frequency as necessary. Thank you. Pharmacy has transitioned to AUC monitoring for vancomycin. AUC/PEDRO is the preferred PK/PD target and is associated with decreased risk of nephrotoxicity compared to traditional trough targets.
[2021-10-06] MEDS ORDERED: FUROSEMIDE 40 MG/4 ML VIAL IV ONE (11:15)
--- NOTE | 2021-10-06 11:16 | Hospitalist Progress Note ---
Date of Service October 06, 2021 Assessment & Plan (1) Perihepatic abscess: Plan: Admitted to [facility] on 09/24/2021 and discharged on 10/03/2021 Following IR drainage of perihepatic abscess He was discharged from [place] on 10/03/2021 and was admitted with a fall secondary to weakness on 10/04/2021 at [facility] Has a PICC line and has been getting intravenous ertapenem and vancomycin which will be continued until 11/09/2021 Weekly CBC and BMP with vancomycin troughs will be done as an outpatient Kidney function and electrolytes are unremarkable Still draining pus from the hepatic abscess Instruction as per discharge summary Repeat CT tentatively at 4 weeks and will need IR follow-up for drain removal at that time If the drain output diminishes the CT can be done earlier than 4 weeks Not noted in the instructions that the drain should be flushed daily which is being done in this hospital Patient remains stable (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 Likely secondary to reactive from hepatic abscess Echo of the heart showed- EF of 60 to 65%, there is mild concentric LVH, and no significant valvular pathology (4) Fall: Plan: He is unable to take care of himself at this time due to severe weakness. Admit for Obs and probable placement PT OT for placement CM referral placed. (5) Weakness: Plan: Multifactorial Mainly secondary to carcinoma/chemotherapy/hepatic abscess History of hypertension Continue to monitor BP. Was previously on lisinopril, but taken off during hospitalization. If BP begins to climb, consider restarting (6) Hypoalbuminemia: (7) Anemia: (8) Bilateral lower extremity edema: Plan: Secondary to lack of mobility, hypoalbuminemia, decreased venous return but no heart failure Will try small doses of Lasix intravenously and monitor BMP for edema and pleural effusion which seems to be reactive (9) Peritoneal carcinoma: Plan: As above (10) DVT prophylaxis: Plan: SQ Heparin Admission and Anticipated Discharge Date Admission Date: October 05, 2021 Subjective 10/05/2021 The patient was seen and examined in medical telemetry unit He remains generally weak and lethargic but otherwise denies any significant s ymptoms Grossly edematous in the legs Denies any chest pain, abdominal pain, nausea or vomiting or any shortness of breath 10/06/2021 The patient was seen and examined in medical telemetry unit He remains stable, generally weak and complains to have swelling of the legs which has been ongoing Denies any abdominal distention, pain, nausea or vomiting No fever and no chills Review of Systems Review of Systems: All systems reviewed and are unremarkable except as noted below Gastrointestinal: Mild abdominal discomfort. Status post intra-abdominal drain in situ Neurologic: Generally weak and lethargic Physical Exam Physical Exam: Sitting on a chair with lethargy but denies any acute distress Constitutional: well developed, well nourished, + ill appearing and + obese Eyes: PERRL, conjunctivae normal, anicteric sclerae ENMT: external ear and nose normal, oropharynx normal Neck: trachea midline, no thyromegaly Respiratory: no respiratory distress Auscultation: + diminished lung sounds (Mostly on the right lower lung) and + crackles (Minimal crackles at the bases) Cardiovascular: Rate/Rhythm: regular rate and regular rhythm; not tachycardic Heart Sounds: normal S1 and normal S2; no murmur Extremities: + edema (2+ edema bilaterally) Gastrointestinal (Abdomen): Inspection/Auscultation: + abdomen distended and normal bowel sounds; + abdomen abnormal to inspection (Has right upper quadrant drain in situ) Musculoskeletal: No acute arthritis involving any joint Skin: Has right upper quadrant drain in situ Neurologic: normal touch/pain/proprioception and moves all extremities Generally weak and lethargic Lymphatic: no cervical or axillary lymphadenopathy Results & Data Results & Data ([facility]) Vital Signs (Past 12 Hours) Vital Signs Temp Pulse Pulse Resp BP Pulse Ox 10/06/21 09:09 85 10/06/21 07:29 36.8 C 90 20 129/73 96 10/06/21 02:56 36.8 C 90 18 136/75 90 Laboratory Results Short CBC 10/06/21 Range/Units 06:30 WBC 9.27 (4.8-10.8) K/ul Hgb 7.9 L (14.0-18.0) g/dl Hct 24.4 L (40.1-51.0) % Plt Count 242 (130-400) K/uL BMP 10/06/21 06:30 Sodium 135 L Potassium 3.8 Chloride 105 Carbon Dioxide 24 BUN 11 Creatinine 0.76 Glucose 80 Calcium 8.0 L Liver Function 10/06/21 Range/Units 06:30 Total Bilirubin 0.7 (0.2-1.0) mg/dl AST 39 (13-39) U/L ALT 20 (7-52) U/L Alkaline Phosphatase 113 H (34-104) U/L Albumin 2.8 L (3.4-5.0) gm/dl Urine 10/05/21 Range/Units 18:23 Urine Color Yellow Urine Appearance Clear (Clear) Urine pH 6.5 (4.5-7.5) Ur Specific Dairy 1.012 (1.000-1.030) Urine Protein Negative (Negative) Urine Glucose (UA) Negative (Negative) Medications Administered Current Inpatient Medications Acetaminophen (Acetaminophen 325 Mg Tab) 650 mg PO Q8H PRN PRN Reason: Pain or Fever Stop: 11/03/21 13:27 Last Admin: 10/06/21 05:07 Dose: 650 mg Documented by: Al Hydrox/Mg Hydrox/Simethicone (Aluminum/Magnesium Susp 30 Ml Udc) 15 ml PO Q4H PRN PRN Reason: Dyspepsia Stop: 11/03/21 13:27 Famotidine (Famotidine 20 Mg Tab) 20 mg PO DAILY AMANDA Stop: 11/04/21 08:59 Last Admin: 10/06/21 08:00 Dose: 20 mg Documented by: Furosemide (Furosemide 40 Mg/4 Ml Vial) 40 mg IV ONE ONE Stop: 10/06/21 11:16 Heparin Sodium (Beef Lung) (Heparin 10 Unit/Ml 5 Ml Flush) 5 ml FLUSH PRN PRN PRN Reason: Flush Stop: 11/04/21 08:18 Last Admin: 10/06/21 11:08 Dose: 5 ml Documented by: Heparin Sodium (Porcine) (Heparin Sod 5,000 Unit/0.5 Ml Vial) 5,000 units SQ Q12 AMANDA Stop: 11/03/21 20:59 Last Admin: 10/06/21 08:00 Dose: 5,000 units Documented by: Ertapenem 1,000 mg/ Syringe 10 mls @ 2 mls/min IV Q24H AMANDA Stop: 11/09/21 08:59 Last Admin: 10/05/21 15:26 Dose: 2 mls/min Documented by: Vancomycin HCl 2,000 mg/ (Sodium Chloride) 540 mls @ 200 mls/hr IV DAILY@0900 AMANDA Stop: 11/09/21 08:59 Last Infusion: 10/06/21 11:06 Dose: Infused Documented by: Miscellaneous Information (Vancomycin Consult Active) 1 ea N/A UD PRN PRN Reason: Consult Stop: 11/03/21 13:13 Oxycodone HCl (Oxycodone Hcl Ir 5 Mg Tab (Immediate Release)) 5 mg PO Q8H PRN PRN Reason: MODERATE/SEVERE PAIN Stop: 10/18/21 17:30 Last Admin: 10/05/21 23:41 Dose: 5 mg Documented by: (1) Fall Encounter type: initial encounter Qualified Code(s): W19.XXXA - Unspecified fall, initial encounter (2) Anemia Anemia type: unspecified type Qualified Code(s): D64.9 - Anemia, unspecified
[2021-10-06] MEDS: ERTAPENEM SODIUM 1,000 MG in SYRINGE 0 ML IV SCH (15:55)
[2021-10-07] MEDS: FAMOTIDINE 20 MG TAB PO SCH (07:53)
[2021-10-07] MEDS: HEPARIN SOD 5,000 UNIT/0.5 ML VIAL SQ SCH (07:53)
[2021-10-07] MEDS: VANCOMYCIN HCL 2,000 MG in SODIUM CHLORIDE 0.9% 500 ML IV SCH (07:56)
[2021-10-07 08:49] LABS: Albumin Globulin Ratio 0.6 (0.9-2); Albumin Level 2.6 gm/dl (3.4-5.0); BUN Creatinine Ratio 12.4 (10-20); Bilirubin,Total 0.7 mg/dl (0.2-1.0); Calcium 7.9 mg/dl (8.5-10.1); Creatinine Clr Calc Pharmacy 115.4 ml/min; Est GFR (Non-African American) 92.3 ml/min; Globulin 4.4 gm/dl (2.5-4.0); Potassium 3.6 mmol/L (3.5-5.1)
--- NOTE | 2021-10-07 15:26 | Hospitalist Progress Note ---
Date of Service October 07, 2021 Assessment & Plan (1) Perihepatic abscess: Plan: Admitted to [facility] on 09/24/2021 and discharged on 10/03/2021 Following IR drainage of perihepatic abscess He was discharged from [place] on 10/03/2021 and was admitted with a fall secondary to weakness on 10/04/2021 at [facility] Has a PICC line and has been getting intravenous ertapenem and vancomycin which will be continued until 11/09/2021 Weekly CBC and BMP with vancomycin troughs will be done as an outpatient Kidney function and electrolytes are unremarkable Still draining pus from the hepatic abscess Denies any abdominal pain, nausea and or vomiting Instruction as per discharge summary Repeat CT tentatively at 4 weeks and will need IR follow-up for drain removal at that time If the drain output diminishes the CT can be done earlier than 4 weeks Not noted in the instructions that the drain should be flushed daily which is being done in this hospital Patient remains stable Will ask PCP to arrange repeat CT as advised from [place] (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 Likely secondary to reactive from hepatic abscess Echo of the heart showed: EF of 60 to 65%, there is mild concentric LVH, and no significant valvular pathology Denies any shortness of breath at rest If he develops short of breath the fluid might need to be drained Will administer another dose of IV Lasix of 40 mg today and monitor BMP We will get a chest x-ray tomorrow (4) Fall: Plan: He is unable to take care of himself at this time due to severe weakness. Admit for Obs and probable placement PT OT for placement CM referral placed. (5) Weakness: Plan: Multifactorial Mainly secondary to carcinoma/chemotherapy/hepatic abscess History of hypertension Continue to monitor BP. Was previously on lisinopril, but taken off during hospitalization. If BP begins to climb, consider restarting (6) Hypoalbuminemia: (7) Anemia: (8) Bilateral lower extremity edema: Plan: Secondary to lack of mobility, hypoalbuminemia, decreased venous return but no heart failure Will try small doses of Lasix intravenously and monitor BMP for edema and pleural effusion which seems to be reactive Will repeat another dose of Lasix today (9) Peritoneal carcinoma: Plan: As above (10) DVT prophylaxis: Plan: SQ Heparin Admission and Anticipated Discharge Date Admission Date: October 05, 2021 Subjective 10/05/2021 The patient was seen and examined in medical telemetry unit He remains generally weak and lethargic but otherwise denies any significant symptoms Grossly edematous in the legs Denies any chest pain, abdominal pain, nausea or vomiting or any shortness of breath 10/06/2021 The patient was seen and examined in medical telemetry unit He remains stable, generally weak and complains to have swelling of the legs which has been ongoing Denies any abdominal distention, pain, nausea or vomiting No fever and no chills 10/07/2021 The patient was seen and examined in medical telemetry unit He has been stable and complains to have weakness Denies any abdominal pain nausea or vomiting His leg swelling seems to be a little better Review of Systems Review of Systems: All systems reviewed and are unremarkable except as noted below Gastrointestinal: Mild abdominal discomfort. Status post intra-abdominal drain in situ Neurologic: Generally weak and lethargic Physical Exam Physical Exam: Lying in bed without any acute distress Constitutional: well developed, well nourished, + ill appearing and + obese Eyes: PERRL, conjunctivae normal, anicteric sclerae ENMT: external ear and nose normal, oropharynx normal Neck: trachea midline, no thyromegaly Respiratory: no respiratory distress Auscultation: + diminished lung sounds (Mostly on the right lower lung) and + crackles (Minimal crackles at the bases) Cardiovascular: Rate/Rhythm: regular rate and regular rhythm; not tachycardic Heart Sounds: normal S1 and normal S2; no murmur Extremities: + edema (2+ edema bilaterally) Gastrointestinal (Abdomen): Inspection/Auscultation: + abdomen distended and normal bowel sounds; + abdomen abnormal to inspection (Has right upper quadrant drain in situ) Musculoskeletal: No acute arthritis involving any joint Neurologic: normal touch/pain/proprioception and moves all extremities Lymphatic: no cervical or axillary lymphadenopathy Results & Data Results & Data ([facility]) Vital Signs (Past 12 Hours) Vital Signs Temp Pulse Pulse Resp BP Pulse Ox 10/07/21 15:06 37.3 C 100 H 14 142/76 H 93 10/07/21 11:28 37.0 C 96 H 14 122/79 95 10/07/21 07:33 91 H 10/07/21 07:32 36.6 C 93 H 16 125/71 100 10/07/21 04:00 36.7 C 99 H 18 129/73 94 Laboratory Results [facility] 10/07/21 07:38 Sodium 136 Potassium 3.6 Chloride 104 Carbon Dioxide 26 BUN 11 Creatinine 0.89 Glucose 94 Calcium 7.9 L Liver Function 10/07/21 Range/Units 07:38 Total Bilirubin 0.7 (0.2-1.0) mg/dl AST 37 (13-39) U/L ALT 20 (7-52) U/L Alkaline Phosphatase 126 H (34-104) U/L Albumin 2.6 L (3.4-5.0) gm/dl Medications Administered Current Inpatient Medications Acetaminophen (Acetaminophen 325 Mg Tab) 650 mg PO Q8H PRN PRN Reason: Pain or Fever Stop: 11/03/21 13:27 Last Admin: 10/06/21 23:38 Dose: 650 mg Documented by: Al Hydrox/Mg Hydrox/Simethicone (Aluminum/Magnesium Susp 30 Ml Udc) 15 ml PO Q4H PRN PRN Reason: Dyspepsia Stop: 11/03/21 13:27 Enoxaparin Sodium (Enoxaparin Inj 40 Mg/0.4 Ml Syr) 40 mg SQ HS AMANDA Stop: 11/06/21 20:59 Famotidine (Famotidine 20 Mg Tab) 20 mg PO DAILY AMANDA Stop: 11/04/21 08:59 Last Admin: 10/07/21 07:53 Dose: 20 mg Documented by: Heparin Sodium (Beef Lung) (Heparin 10 Unit/Ml 5 Ml Flush) 5 ml FLUSH PRN PRN PRN Reason: Flush Stop: 11/04/21 08:18 Last Admin: 10/07/21 11:06 Dose: 5 ml Documented by: Ertapenem 1,000 mg/ Syringe 10 mls @ 2 mls/min IV Q24H [facility]ANDA Stop: 11/09/21 08:59 Last Admin: 10/06/21 15:55 Dose: 2 mls/min Documented by: Vancomycin HCl 2,000 mg/ (Sodium Chloride) 540 mls @ 200 mls/hr IV DAILY@0900 [facility] Stop: 11/09/21 08:59 Last Infusion: 10/07/21 10:40 Dose: Infused Documented by: Miscellaneous Information (Vancomycin Consult Active) 1 ea N/A UD PRN PRN Reason: Consult Stop: 11/03/21 13:13 Oxycodone HCl (Oxycodone Hcl Ir 5 Mg Tab (Immediate Release)) 5 mg PO Q8H PRN PRN Reason: MODERATE/SEVERE PAIN Stop: 10/18/21 17:30 Last Admin: 10/05/21 23:41 Dose: 5 mg Documented by: (1) Fall Encounter type: initial encounter Qualified Code(s): W19.XXXA - Unspecified fall, initial encounter (2) Anemia Anemia type: unspecified type Qualified Code(s): D64.9 - Anemia, unspecified
[2021-10-07] MEDS ORDERED: FUROSEMIDE 40 MG/4 ML VIAL IV ONE (15:31)
[2021-10-07] MEDS: ERTAPENEM SODIUM 1,000 MG in SYRINGE 0 ML IV SCH (15:35)
[2021-10-07] MEDS: ENOXAPARIN INJ 40 MG/0.4 ML SYR SQ SCH (20:58)
[2021-10-08] MEDS: ACETAMINOPHEN 325 MG TAB PO PRN ×3 (00:11→20:14)
[2021-10-08 07:44] LABS: Basophils # (auto) 0.07 K/uL (0-0.2); Basophils % (auto) 0.7 %; Eosinophils # (auto) 0.02 K/uL (0-0.50); Eosinophils % (auto) 0.2 %; Hematocrit (blood only) 25.9 % (40.1-51.0); Hemoglobin 8.5 g/dl (14.0-18.0); Immature Granulocytes # (auto) 0.08 K/uL (0.00-0.02); Immature Granulocytes % (auto) 0.8 %; Lymphocytes # (auto) 1.76 K/uL (1.2-3.4); Lymphocytes % (auto) 16.6 %; Mean Corpuscular Hemoglobin 30.2 pg (25.0-34.0); Mean Corpuscular Hgb Conc 32.8 g/dL (32.0-36.0); Mean Corpuscular Volume 92.2 fL (80.0-100.0); Mean Platelet Volume 9.5 fL (9.4-12.4); Monocytes # (auto) 1.05 K/uL (0.24-0.82); Monocytes % (auto) 9.9 %; Neutrophils # (auto) 7.65 K/uL (1.4-6.5); Neutrophils % (auto) 71.8 %; Platelet Count 268 K/uL (130-400); RDW Coefficient of Variation 17.7 % (11.5-14.5); RDW Standard Deviation 60.2 fL (36.4-46.3); Red Blood Count 2.81 M/uL (4.63-6.08); White Blood Count 10.63 K/ul (4.8-10.8)
[2021-10-08] MEDS ORDERED: VANCOMYCIN LEVEL ONE (08:00)
[2021-10-08 08:07] LABS: Calcium 7.8 mg/dl (8.5-10.1); Creatinine Clr Calc Pharmacy 111.6 ml/min; Est GFR (African American) 103.7 ml/min; Est GFR (Non-African American) 89.5 ml/min; Potassium 3.7 mmol/L (3.5-5.1)
[2021-10-08] MEDS: VANCOMYCIN HCL 2,000 MG in SODIUM CHLORIDE 0.9% 500 ML IV SCH (08:28)
[2021-10-08] MEDS: FAMOTIDINE 20 MG TAB PO SCH (09:07)
--- NOTE | 2021-10-08 10:23 | Pharmacy Report ---
Pharmacy Vanc AUC Short Note - Date of Service October 08, 2021 - Assessment & Plan Assessment 61 year old M receiving vancomycin/ertapenem for treatment of hepatic abscess. Pertinent microbiologic data includes: N/A. Day # 5 of antimicrobial therapy. Plan Vancomycin * AUC/PEDRO is the preferred PK/PD target for vancomycin * AUC guided dosing is effective and associated with decreased risk of nephrotoxicity compared to traditional trough targets * Trough level of 14.8 mcg/mL is predicted to achieve target AUC/PEDRO of 400-600 mg/L.hr and may be associated with a 12 % risk of nephrotoxicity * Continue dose of 2000 mg IV every 24 hours * Trough to be reordered based upon clinical picture Pharmacy will continue to follow and will adjust dose/frequency as necessary. Thank you.
[2021-10-08] MEDS: ERTAPENEM SODIUM 1,000 MG in SYRINGE 0 ML IV SCH (15:19)
--- NOTE | 2021-10-08 17:15 | Hospitalist Progress Note ---
Date of Service October 08, 2021 Assessment & Plan (1) Perihepatic abscess: Plan: Admitted to [facility] on 09/24/2021--10/03/2021 s/p IR drainage of perihepatic abscess Has a PICC line and has been getting intravenous ertapenem and vancomycin which will be continued until 11/09/2021 Weekly CBC and BMP with vancomycin troughs while on antibiotics Instruction as per [facility] discharge summary Repeat CT tentatively at 4 weeks and will need IR follow-up for drain removal at that time If the drain output diminishes the CT can be done earlier than 4 weeks Not noted in the instructions that the drain should be flushed daily which is being done in this hospital Patient remains stable Will ask PCP to arrange repeat CT as advised from [place] (2) Cholangiocarcinoma: Plan: Has cholangiocarcinoma, 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 Was previously on lisinopril, but taken off during hospitalization. If BP begins to climb, consider restarting (6) Hypoalbuminemia: (7) Anemia: (8) Bilateral lower extremity edema: Plan: start lasix 40mg IV daily, elevate legs when sitting (9) Peritoneal carcinoma: (10) DVT prophylaxis: Plan: SQ Heparin Plan Disposition- Placement to rehab Admission and Anticipated Discharge Date Admission Date: October 05, 2021 Subjective Reports mild pain at drain insertion site Ongoing leg swelling which he noted began during his last admission at [facility] otherwise no new issues Physical Exam Physical Exam: No acute distress, pleasant, non toxic Respiratory: breathing comfortably on room air, no wheezing/rhonchi/rales Cardiovascular: regular rate and rhythm, no murmurs/rubs/gallops Gastrointestinal (Abdomen): soft, non tender, non distended, RUQ drain with serosanguinous fluid--site of insertion is clean/dry Musculoskeletal: 2+ edema bilaterally Neurologic: awake, alert, spontaneously moving extremities Results & Data Results & Data ([facility]) Vital Signs (Past 12 Hours) Vital Signs Temp Pulse Resp BP Pulse Ox O2 Del Method 10/08/21 15:27 37.1 C 98 H 16 115/70 94 Room Air 10/08/21 11:36 36.7 C 96 H 16 117/65 93 Room Air 10/08/21 09:35 Room Air 10/08/21 08:03 37.0 C 91 H 14 114/72 94 Room Air 10/08/21 07:30 36.6 C 97 H 16 104/66 94 Room Air Laboratory Results Short CBC 10/08/21 Range/Units 07:30 WBC 10.63 (4.8-10.8) K/ul Hgb 8.5 L (14.0-18.0) g/dl Hct 25.9 L (40.1-51.0) % Plt Count 268 (130-400) K/uL BMP 10/08/21 07:30 Sodium 134 L Potassium 3.7 Chloride 103 Carbon Dioxide 27 BUN 12 Creatinine 0.92 Glucose 93 Calcium 7.8 L Medications Administered Current Inpatient Medications Acetaminophen (Acetaminophen 325 Mg Tab) 650 mg PO Q8H PRN PRN Reason: Pain or Fever Stop: 11/03/21 13:27 Last Admin: 10/08/21 10:08 Dose: 650 mg Al Hydrox/Mg Hydrox/Simethicone (Aluminum/Magnesium Susp 30 Ml Udc) 15 ml PO Q4H PRN PRN Reason: Dyspepsia Stop: 11/03/21 13:27 Enoxaparin Sodium (Enoxaparin Inj 40 Mg/0.4 Ml Syr) 40 mg SQ HS AMANDA Stop: 11/06/21 20:59 Last Admin: 10/07/21 20:58 Dose: 40 mg Famotidine (Famotidine 20 Mg Tab) 20 mg PO DAILY AMANDA Stop: 11/04/21 08:59 Last Admin: 10/08/21 09:07 Dose: 20 mg Furosemide (Furosemide 40 Mg/4 Ml Vial) 40 mg IV DAILY AMANDA Stop: 10/14/21 08:59 Heparin Sodium (Beef Lung) (Heparin 10 Unit/Ml 5 Ml Flush) 5 ml FLUSH PRN PRN PRN Reason: Flush Stop: 11/04/21 08:18 Last Admin: 10/07/21 15:43 Dose: 5 ml Ertapenem 1,000 mg/ Syringe 10 mls @ 2 mls/min IV Q24H [facility] Stop: 11/09/21 08:59 Last Admin: 10/08/21 15:19 Dose: 2 mls/min Vancomycin HCl 2,000 mg/ (Sodium Chloride) 540 mls @ 200 mls/hr IV DAILY@0900 [facility] Stop: 11/09/21 08:59 Last Infusion: 10/08/21 11:13 Dose: Infused Magnesium Oxide (Magnesium Oxide 400 Mg Tab) 400 mg PO QAM [facility] Stop: 10/14/21 08:59 Miscellaneous Information (Vancomycin Consult Active) 1 ea N/A UD PRN PRN Reason: Consult Stop: 11/03/21 13:13 Oxycodone HCl (Oxycodone Hcl Ir 5 Mg Tab (Immediate Release)) 5 mg PO Q8H PRN PRN Reason: MODERATE/SEVERE PAIN Stop: 10/18/21 17:30 Last Admin: 10/05/21 23:41 Dose: 5 mg Potassium Chloride (Potassium Chloride Crtab 20 Meq Tabcr) 40 meq PO QAM [facility] Stop: 10/14/21 08:59 (1) Fall Encounter type: initial encounter Qualified Code(s): W19.XXXA - Unspecified fall, initial encounter (2) Anemia Anemia type: unspecified type Qualified Code(s): D64.9 - Anemia, unspecified
[2021-10-08] MEDS: ENOXAPARIN INJ 40 MG/0.4 ML SYR SQ SCH (20:52)
[2021-10-09] MEDS: oxyCODONE HCL IR 5 MG TAB (IMMEDIATE RELEASE) PO PRN (00:04)
[2021-10-09] MEDS: ACETAMINOPHEN 325 MG TAB PO PRN ×3 (05:00→21:43)
[2021-10-09 08:27] LABS: Hematocrit (blood only) 26.4 % (40.1-51.0); Hemoglobin 8.4 g/dl (14.0-18.0); Mean Corpuscular Hemoglobin 30.7 pg (25.0-34.0); Mean Corpuscular Hgb Conc 31.8 g/dL (32.0-36.0); Mean Corpuscular Volume 96.4 fL (80.0-100.0); Mean Platelet Volume 9.8 fL (9.4-12.4); Platelet Count 245 K/uL (130-400); RDW Coefficient of Variation 17.2 % (11.5-14.5); RDW Standard Deviation 59.7 fL (36.4-46.3); Red Blood Count 2.74 M/uL (4.63-6.08); White Blood Count 9.18 K/ul (4.8-10.8)
[2021-10-09] MEDS: MAGNESIUM OXIDE 400 MG TAB PO SCH (08:35)
[2021-10-09] MEDS: VANCOMYCIN HCL 2,000 MG in SODIUM CHLORIDE 0.9% 500 ML IV SCH (08:35)
[2021-10-09] MEDS: FAMOTIDINE 20 MG TAB PO SCH (08:35)
[2021-10-09] MEDS: POTASSIUM CHLORIDE CRTAB 20 MEQ TABCR PO SCH (08:36)
[2021-10-09] MEDS: FUROSEMIDE 40 MG/4 ML VIAL IV SCH (08:36)
[2021-10-09 08:54] LABS: BUN Creatinine Ratio 14.8 (10-20); Calcium 7.8 mg/dl (8.5-10.1); Creatinine Clr Calc Pharmacy 126.9 ml/min; Est GFR (African American) 111.2 ml/min; Est GFR (Non-African American) 95.9 ml/min; Potassium 3.6 mmol/L (3.5-5.1)
[2021-10-09] MEDS: POLYETHYLENE (MIRALAX) 17 GM PACK PO SCH (10:05)
--- NOTE | 2021-10-09 14:16 | Hospitalist Progress Note ---
Date of Service October 09, 2021 Assessment & Plan (1) Perihepatic abscess: Plan: Admitted to [facility] on 09/24/2021--10/03/2021 s/p IR drainage of perihepatic abscess Has a PICC line and has been getting intravenous ertapenem and vancomycin which will be continued until 11/09/2021 Weekly CBC and BMP with vancomycin troughs while on antibiotics Instruction as per [facility] discharge summary Repeat CT tentatively at 4 weeks and will need IR follow-up for drain removal at that time If the drain output diminishes the CT can be done earlier than 4 weeks Not noted in the instructions that the drain should be flushed daily which is being done in this hospital Patient remains stable Will ask PCP to arrange repeat CT as advised from [place] (2) Cholangiocarcinoma: Plan: Has cholangiocarcinoma, 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 Was previously on lisinopril, but taken off during hospitalization. BP normotensive currently (6) Hypoalbuminemia: (7) Anemia: (8) Bilateral lower extremity edema: Plan: start lasix 40mg IV daily, elevate legs when sitting (9) Peritoneal carcinoma: (10) DVT prophylaxis: Plan: SQ Heparin Plan Disposition- Placement to rehab Admission and Anticipated Discharge Date Admission Date: October 05, 2021 Subjective No issues overnight Feels constipated Tolerating diet Review of Systems Review of Systems: As above Physical Exam Physical Exam: No acute distress, non toxic, pleasant, forgetful Respiratory: Breathing comfortably on room air, no wheezing/rhonchi Cardiovascular: Regular rate and rhythm, no murmurs/rubs Gastrointestinal (Abdomen): Soft, non tender, non distended, obese Musculoskeletal: 2+ edema bilaterally Neurologic: awake, alert, forgetful, spontaneously moving extremities Results & Data Results & Data ([facility]) Vital Signs (Past 12 Hours) Vital Signs Temp Pulse Resp BP Pulse Ox O2 Del Method 10/09/21 11:53 36.7 C 96 H 14 114/71 93 Room Air 10/09/21 09:01 Room Air 10/09/21 07:21 36.4 C L 90 16 131/78 95 Room Air Laboratory Results Short CBC 10/09/21 Range/Units 08:07 WBC 9.18 (4.8-10.8) K/ul Hgb 8.4 L (14.0-18.0) g/dl Hct 26.4 L (40.1-51.0) % Plt Count 245 (130-400) K/uL BMP 10/09/21 08:07 Sodium 136 Potassium 3.6 Chloride 104 Carbon Dioxide 27 BUN 12 Creatinine 0.81 Glucose 91 Calcium 7.8 L Medications Administered Current Inpatient Medications Acetaminophen (Acetaminophen 325 Mg Tab) 650 mg PO Q8H PRN PRN Reason: Pain or Fever Stop: 11/03/21 13:27 Last Admin: 10/09/21 13:28 Dose: 650 mg Al Hydrox/Mg Hydrox/Simethicone (Aluminum/Magnesium Susp 30 Ml Udc) 15 ml PO Q4H PRN PRN Reason: Dyspepsia Stop: 11/03/21 13:27 Enoxaparin Sodium (Enoxaparin Inj 40 Mg/0.4 Ml Syr) 40 mg SQ HS AMANDA Stop: 11/06/21 20:59 Last Admin: 10/08/21 20:52 Dose: 40 mg Famotidine (Famotidine 20 Mg Tab) 20 mg PO DAILY [facility]ANDA Stop: 11/04/21 08:59 Last Admin: 10/09/21 08:35 Dose: 20 mg Furosemide (Furosemide 40 Mg/4 Ml Vial) 40 mg IV DAILY [facility]AN[facility] Stop: 10/14/21 08:59 Last Admin: 10/09/21 08:36 Dose: 40 mg Heparin Sodium (Beef Lung) (Heparin 10 Unit/Ml 5 Ml Flush) 5 ml FLUSH PRN PRN PRN Reason: Flush Stop: 11/04/21 08:18 Last Admin: 10/07/21 15:43 Dose: 5 ml Ertapenem 1,000 mg/ Syringe 10 mls @ 2 mls/min IV Q24H [facility] Stop: 11/09/21 08:59 Last Admin: 10/08/21 15:19 Dose: 2 mls/min Vancomycin HCl 2,000 mg/ (Sodium Chloride) 540 mls @ 200 mls/hr IV DAILY@0900 [facility] Stop: 11/09/21 08:59 Last Infusion: 10/09/21 11:20 Dose: Infused Magnesium Oxide (Magnesium Oxide 400 Mg Tab) 400 mg PO QAM [facility] Stop: 10/14/21 08:59 Last Admin: 10/09/21 08:35 Dose: 400 mg Miscellaneous Information (Vancomycin Consult Active) 1 ea N/A UD PRN PRN Reason: Consult Stop: 11/03/21 13:13 Oxycodone HCl (Oxycodone Hcl Ir 5 Mg Tab (Immediate Release)) 5 mg PO Q8H PRN PRN Reason: MODERATE/SEVERE PAIN Stop: 10/18/21 17:30 Last Admin: 10/09/21 00:04 Dose: 5 mg Polyethylene Glycol (Polyethylene (Miralax) 17 Gm Pack) 17 gm PO DAILY [facility] Stop: 11/08/21 09:14 Last Admin: 10/09/21 10:05 Dose: 17 gm Potassium Chloride (Potassium Chloride Crtab 20 Meq Tabcr) 40 meq PO QAM [facility] Stop: 10/14/21 08:59 Last Admin: 10/09/21 08:36 Dose: 40 meq (1) Fall Encounter type: initial encounter Qualified Code(s): W19.XXXA - Unspecified fall, initial encounter (2) Anemia Anemia type: unspecified type Qualified Code(s): D64.9 - Anemia, unspecified
[2021-10-09] MEDS: ERTAPENEM SODIUM 1,000 MG in SYRINGE 0 ML IV SCH (15:36)
[2021-10-09] MEDS: ENOXAPARIN INJ 40 MG/0.4 ML SYR SQ SCH (20:26)
[2021-10-10] MEDS: VANCOMYCIN HCL 2,000 MG in SODIUM CHLORIDE 0.9% 500 ML IV SCH (07:53)
[2021-10-10] MEDS: POLYETHYLENE (MIRALAX) 17 GM PACK PO SCH (07:54)
[2021-10-10] MEDS: FUROSEMIDE 40 MG/4 ML VIAL IV SCH (07:54)
[2021-10-10] MEDS: POTASSIUM CHLORIDE CRTAB 20 MEQ TABCR PO SCH (07:54)
[2021-10-10] MEDS: MAGNESIUM OXIDE 400 MG TAB PO SCH (07:55)
[2021-10-10] MEDS: FAMOTIDINE 20 MG TAB PO SCH (07:55)
[2021-10-10 08:42] LABS: BUN Creatinine Ratio 15.3 (10-20); Calcium 7.9 mg/dl (8.5-10.1); Creatinine Clr Calc Pharmacy 120.9 ml/min; Magnesium 1.9 mg/dl (1.7-2.4); Potassium 3.9 mmol/L (3.5-5.1)
[2021-10-10] MEDS: ACETAMINOPHEN 325 MG TAB PO PRN ×2 (11:18→19:22)
[2021-10-10] MEDS: ERTAPENEM SODIUM 1,000 MG in SYRINGE 0 ML IV SCH (15:56)
--- NOTE | 2021-10-10 17:31 | Hospitalist Progress Note ---
Date of Service October 10, 2021 Assessment & Plan (1) Perihepatic abscess: Plan: Admitted to [facility] on 09/24/2021--10/03/2021 s/p IR drainage of perihepatic abscess Has a PICC line and has been getting intravenous ertapenem and vancomycin which will be continued until 11/09/2021 Weekly CBC and BMP with vancomycin troughs while on antibiotics Instruction as per [facility] discharge summary Repeat CT tentatively at 4 weeks and will need IR follow-up for drain removal at that time If the drain output diminishes the CT can be done earlier than 4 weeks Not noted in the instructions that the drain should be flushed daily which is being done in this hospital Patient remains stable Will ask PCP to arrange repeat CT as advised from [place] (2) Cholangiocarcinoma: Plan: Has cholangiocarcinoma, 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 Was previously on lisinopril, but taken off during hospi talization. BP normotensive currently (6) Hypoalbuminemia: (7) Anemia: (8) Bilateral lower extremity edema: Plan: start lasix 40mg IV daily, elevate legs when sitting (9) Peritoneal carcinoma: (10) DVT prophylaxis: Plan: SQ Heparin Plan Disposition- Placement to rehab. Patient is medically stable for discharge pending placement Admission and Anticipated Discharge Date Admission Date: October 05, 2021 Subjective Remains afebrile, had BM yesterday. Still with leg swelling Physical Exam Physical Exam: No acute distress, non toxic, pleasant Respiratory: Breathing comfortably on room air, no wheezing/rhonchi/rales Cardiovascular: Regular rate and rhythm, no murmurs/rubs/gallops Gastrointestinal (Abdomen): soft, non tender, non distended Musculoskeletal: 1-2+ edema Neurologic: awake, alert, spontaneously moving extremities Results & Data Results & Data ([facility]) Vital Signs (Past 12 Hours) Vital Signs Temp Pulse Resp BP Pulse Ox O2 Del Method 10/10/21 16:00 36.7 C 97 H 20 118/69 96 Room Air 10/10/21 08:00 Room Air 10/10/21 06:43 36.7 C 92 H 20 115/72 94 Room Air Laboratory Results [facility] 10/10/21 08:02 Sodium 135 L Potassium 3.9 Chloride 104 Carbon Dioxide 27 BUN 13 Creatinine 0.85 Glucose 95 Calcium 7.9 L Medications Administered Current Inpatient Medications Acetaminophen (Acetaminophen 325 Mg Tab) 650 mg PO Q8H PRN PRN Reason: Pain or Fever Stop: 11/03/21 13:27 Last Admin: 10/10/21 11:18 Dose: 650 mg Al Hydrox/Mg Hydrox/Simethicone (Aluminum/Magnesium Susp 30 Ml Udc) 15 ml PO Q4H PRN PRN Reason: Dyspepsia Stop: 11/03/21 13:27 Enoxaparin Sodium (Enoxaparin Inj 40 Mg/0.4 Ml Syr) 40 mg SQ HS [facility]AN[facility] Stop: 11/06/21 20:59 Last Admin: 10/09/21 20:26 Dose: 40 mg Famotidine (Famotidine 20 Mg Tab) 20 mg PO DAILY [facility] Stop: 11/04/21 08:59 Last Admin: 10/10/21 07:55 Dose: 20 mg Furosemide (Furosemide 40 Mg/4 Ml Vial) 40 mg IV DAILY [facility] Stop: 10/14/21 08:59 Last Admin: 10/10/21 07:54 Dose: 40 mg Heparin Sodium (Beef Lung) (Heparin 10 Unit/Ml 5 Ml Flush) 5 ml FLUSH PRN PRN PRN Reason: Flush Stop: 11/04/21 08:18 Last Admin: 10/07/21 15:43 Dose: 5 ml Ertapenem 1,000 mg/ Syringe 10 mls @ 2 mls/min IV Q24H [facility] Stop: 11/09/21 08:59 Last Admin: 10/10/21 15:56 Dose: 2 mls/min Vancomycin HCl 2,000 mg/ (Sodium Chloride) 540 mls @ 200 mls/hr IV DAILY@0900 [facility] Stop: 11/09/21 08:59 Last Infusion: 10/10/21 11:54 Dose: Infused Magnesium Oxide (Magnesium Oxide 400 Mg Tab) 400 mg PO QAM [facility] Stop: 10/14/21 08:59 Last Admin: 10/10/21 07:55 Dose: 400 mg Miscellaneous Information (Vancomycin Consult Active) 1 ea N/A UD PRN PRN Reason: Consult Stop: 11/03/21 13:13 Oxycodone HCl (Oxycodone Hcl Ir 5 Mg Tab (Immediate Release)) 5 mg PO Q8H PRN PRN Reason: MODERATE/SEVERE PAIN Stop: 10/18/21 17:30 Last Admin: 10/09/21 00:04 Dose: 5 mg Polyethylene Glycol (Polyethylene (Miralax) 17 Gm Pack) 17 gm PO DAILY [facility] Stop: 11/08/21 09:14 Last Admin: 10/10/21 07:54 Dose: 17 gm Potassium Chloride (Potassium Chloride Crtab 20 Meq Tabcr) 40 meq PO QAM [facility] Stop: 10/14/21 08:59 Last Admin: 10/10/21 07:54 Dose: 40 meq (1) Fall Encounter type: initial encounter Qualified Code(s): W19.XXXA - Unspecified fall, initial encounter (2) Anemia Anemia type: unspecified type Qualified Code(s): D64.9 - Anemia, unspecified
[2021-10-10] MEDS: ENOXAPARIN INJ 40 MG/0.4 ML SYR SQ SCH (20:24)
[2021-10-11] MEDS: VANCOMYCIN HCL 2,000 MG in SODIUM CHLORIDE 0.9% 500 ML IV SCH (08:07)
[2021-10-11] MEDS: MAGNESIUM OXIDE 400 MG TAB PO SCH (08:07)
[2021-10-11] MEDS: FAMOTIDINE 20 MG TAB PO SCH (08:07)
[2021-10-11] MEDS: FUROSEMIDE 40 MG/4 ML VIAL IV SCH (08:07)
[2021-10-11] MEDS: POTASSIUM CHLORIDE CRTAB 20 MEQ TABCR PO SCH (08:07)
[2021-10-11] MEDS: POLYETHYLENE (MIRALAX) 17 GM PACK PO SCH (08:07)
[2021-10-11 08:30] LABS: BUN Creatinine Ratio 14.8 (10-20); Calcium 7.8 mg/dl (8.5-10.1); Creatinine Clr Calc Pharmacy 116.8 ml/min; Est GFR (African American) 107.5 ml/min; Est GFR (Non-African American) 92.7 ml/min; Magnesium 1.9 mg/dl (1.7-2.4)
[2021-10-11] MEDS: ERTAPENEM SODIUM 1,000 MG in SYRINGE 0 ML IV SCH (14:08)
[2021-10-11] MEDS: ACETAMINOPHEN 325 MG TAB PO PRN ×2 (14:13→22:42)
--- NOTE | 2021-10-11 15:03 | Hospitalist Progress Note ---
Date of Service October 11, 2021 Assessment & Plan (1) Perihepatic abscess: Plan: Admitted to [facility] [address] on 09/24/2021--10/03/2021 s/p IR drainage of perihepatic abscess Has a PICC line and has been getting intravenous ertapenem and vancomycin which will be continued until 11/09/2021 Weekly CBC and BMP with vancomycin troughs while on antibiotics Instruction as per [facility] discharge summary Repeat CT tentatively at 4 weeks and will need IR follow-up for drain removal at that time If the drain output diminishes the CT can be done earlier than 4 weeks Not noted in the instructions that the drain should be flushed daily which is being done in this hospital Patient remains stable Will ask PCP to arrange repeat CT as advised from [place] (2) Cholangiocarcinoma: Plan: Has cholangiocarcinoma, 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 Was previously on lisinopril, but taken off during hospi talization. BP normotensive currently (6) Hypoalbuminemia: (7) Anemia: (8) Bilateral lower extremity edema: Plan: continue lasix 40mg IV daily, elevate legs when sitting (9) Peritoneal carcinoma: (10) DVT prophylaxis: Plan: SQ Heparin Plan Disposition- Placement to rehab. Patient is medically stable for discharge pending placement Admission and Anticipated Discharge Date Admission Date: October 05, 2021 Subjective Feels well. Remains afebrile. Waiting for placement. Legs still swollen Physical Exam Physical Exam: appears older than stated age, no acute distress, appears weak and deconditioned Respiratory: breathing comfortably on room air, no wheezing/rhonchi/rales Cardiovascular: regular rate and rhythm, no murmurs/rubs/gallops Gastrointestinal (Abdomen): soft, non tender, non distended Results & Data Results & Data ([place]) Vital Signs (Past 12 Hours) Vital Signs Temp Pulse Resp BP Pulse Ox O2 Del Method 10/11/21 06:13 36.8 C 95 H 20 116/68 94 Room Air (1) Anemia Anemia type: unspecified type Qualified Code(s): D64.9 - Anemia, unspecified (2) Fall Encounter type: initial encounter Qualified Code(s): W19.XXXA - Unspecified fall, initial encounter
[2021-10-11] MEDS: ENOXAPARIN INJ 40 MG/0.4 ML SYR SQ SCH (21:08)
[2021-10-12 06:59] LABS: BUN Creatinine Ratio 14.9 (10-20); Calcium 7.8 mg/dl (8.5-10.1); Creatinine Clr Calc Pharmacy 109.3 ml/min; Est GFR (Non-African American) 87.2 ml/min; Magnesium 1.9 mg/dl (1.7-2.4); Potassium 3.9 mmol/L (3.5-5.1)
--- NOTE | 2021-10-12 08:08 | Pharmacy Report ---
Pharmacy PK ABX Note - Date of Service October 12, 2021 - Assessment and Plan Assessment * 61 year old M receiving vancomycin and ertapenem for treatment of post-ERCP liver abscess (MRSA and mixed aerobic anaerobic milady). * Patient recently diagnosed with metastatic cholangiocarcinoma (delaying chemotherapy at this time in light of infection). Recently hospitalized at [facility] in [place] (09/24-10/03/21). Vancomycin/ertapenem initiated during that time by ID with recommendations to continue vancomycin 2 g IV q24h and ertapenem 1 g IV q24h as an outpatient. * Pertinent microbiologic data includes: liver abscess (09/24) - MRSA. * Day # 17 of antimicrobial therapy (continued from prior hospitalization/outpatient setting). Treatment to be continued until 11/09/21 per [facility] ID. Plan Vancomycin * Random level of 15.4 mcg/mL this am * Continue previous regimen of vanco 2000 mg IV q24h * Check next drug level in several days if patient remains inpatient Ertapenem * Continue 1000 mg IV q24h Pharmacy will continue to follow and will adjust dose/frequency as necessary. Thank you. Pharmacy has transitioned to AUC monitoring for vancomycin. AUC/PEDRO is the preferred PK/PD target and is associated with decreased risk of nephrotoxicity compared to traditional trough targets.
[2021-10-12] MEDS ORDERED: VANCOMYCIN LEVEL ONE (08:30)
[2021-10-12] MEDS: FUROSEMIDE 40 MG/4 ML VIAL IV SCH (08:37)
[2021-10-12] MEDS: POLYETHYLENE (MIRALAX) 17 GM PACK PO SCH (08:37)
[2021-10-12] MEDS: POTASSIUM CHLORIDE CRTAB 20 MEQ TABCR PO SCH (08:37)
[2021-10-12] MEDS: MAGNESIUM OXIDE 400 MG TAB PO SCH (08:38)
[2021-10-12] MEDS: FAMOTIDINE 20 MG TAB PO SCH (08:38)
[2021-10-12] MEDS: VANCOMYCIN HCL 2,000 MG in SODIUM CHLORIDE 0.9% 500 ML IV SCH (09:08)
[2021-10-12] MEDS: ACETAMINOPHEN 325 MG TAB PO PRN ×2 (09:09→19:18)
--- NOTE | 2021-10-12 14:07 | Hospitalist Progress Note ---
Date of Service October 12, 2021 Assessment & Plan (1) Perihepatic abscess: Plan: Admitted to [facility] on 09/24/2021--10/03/2021 s/p IR drainage of perihepatic abscess Has a PICC line and has been getting intravenous ertapenem and vancomycin which will be continued until 11/09/2021 Weekly CBC and BMP with vancomycin troughs while on antibiotics Instruction as per [facility] discharge summary Repeat CT tentatively at 4 weeks and will need IR follow-up for drain removal at that time If the drain output diminishes the CT can be done earlier than 4 weeks Not noted in the instructions that the drain should be flushed daily which is being done in this hospital Patient remains stable Will ask PCP to arrange repeat CT as advised from [place] (2) Cholangiocarcinoma: Plan: Has cholangiocarcinoma, 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 Was previously on lisinopril, but taken off during hospitalization. BP normotensive currently (6) Hypoalbuminemia: (7) Anemia: (8) Bilateral lower extremity edema: Plan: continue lasix 40mg IV daily, elevate legs when sitting (9) Peritoneal carcinoma: (10) DVT prophylaxis: Plan: SQ Heparin Plan Disposition- Placement to rehab. Patient is medically stable for discharge pending placement Admission and Anticipated Discharge Date Admission Date: October 05, 2021 Subjective Feels well. Remains afebrile. Tolerating diet. Regular BM. No new issues overnight Waiting for placement Physical Exam Physical Exam: Sitting in chair, pleasant, no acute distress Respiratory: breathing comfortably on room air, no wheezing/rhonchi/rales Cardiovascular: regular rate and rhythm, no murmurs/rubs/gallops Gastrointestinal (Abdomen): soft, non tender, non distended Musculoskeletal: 1+ edema Neurologic: awake, alert, spontaneously moving extremities Results & Data Results & [facility] Vital Signs (Past 12 Hours) Vital Signs Temp Pulse Resp BP Pulse Ox O2 Del Method 10/12/21 07:32 36.7 C 93 H 16 120/71 93 Room Air 10/12/21 07:24 Room Air Laboratory Results [facility] 10/12/21 05:54 Sodium 134 L Potassium 3.9 Chloride 103 Carbon Dioxide 27 BUN 14 Creatinine 0.94 Glucose 90 Calcium 7.8 L Medications Administered Current Inpatient Medications Acetaminophen (Acetaminophen 325 Mg Tab) 650 mg PO Q8H PRN PRN Reason: Pain or Fever Stop: 11/03/21 13:27 Last Admin: 10/12/21 09:09 Dose: 650 mg Al Hydrox/Mg Hydrox/Simethicone (Aluminum/Magnesium Susp 30 Ml Udc) 15 ml PO Q4H PRN PRN Reason: Dyspepsia Stop: 11/03/21 13:27 Enoxaparin Sodium (Enoxaparin Inj 40 Mg/0.4 Ml Syr) 40 mg SQ HS AMANDA Stop: 11/06/21 20:59 Last Admin: 10/11/21 21:08 Dose: 40 mg Famotidine (Famotidine 20 Mg Tab) 20 mg PO DAILY AMANDA Stop: 11/04/21 08:59 Last Admin: 10/12/21 08:38 Dose: 20 mg Furosemide (Furosemide 40 Mg/4 Ml Vial) 40 mg IV DAILY AMANDA Stop: 10/14/21 08:59 Last Admin: 10/12/21 08:37 Dose: 40 mg Heparin Sodium (Beef Lung) (Heparin 10 Unit/Ml 5 Ml Flush) 5 ml FLUSH PRN PRN PRN Reason: Flush Stop: 11/04/21 08:18 Last Admin: 10/07/21 15:43 Dose: 5 ml Ertapenem 1,000 mg/ Syringe 10 mls @ 2 mls/min IV Q24H AMANDA Stop: 11/09/21 08:59 Last Admin: 10/11/21 14:08 Dose: 2 mls/min Vancomycin HCl 2,000 mg/ (Sodium Chloride) 540 mls @ 200 mls/hr IV DAILY@0900 AMANDA Stop: 11/09/21 08:59 Last Infusion: 10/12/21 12:26 Dose: Infused Magnesium Oxide (Magnesium Oxide 400 Mg Tab) 400 mg PO QAM AMANDA Stop: 10/14/21 08:59 Last Admin: 10/12/21 08:38 Dose: 400 mg Miscellaneous Information (Vancomycin Consult Active) 1 ea N/A UD PRN PRN Reason: Consult Stop: 11/03/21 13:13 Oxycodone HCl (Oxycodone Hcl Ir 5 Mg Tab (Immediate Release)) 5 mg PO Q8H PRN PRN Reason: MODERATE/SEVERE PAIN Stop: 10/18/21 17:30 Last Admin: 10/09/21 00:04 Dose: 5 mg Polyethylene Glycol (Polyethylene (Miralax) 17 Gm Pack) 17 gm PO DAILY AMANDA Stop: 11/08/21 09:14 Last Admin: 10/12/21 08:37 Dose: 17 gm Potassium Chloride (Potassium Chloride Crtab 20 Meq Tabcr) 40 meq PO QAM AMANDA Stop: 10/14/21 08:59 Last Admin: 10/12/21 08:37 Dose: 40 meq (1) Fall Encounter type: initial encounter Qualified Code(s): W19.XXXA - Unspecified fall, initial encounter (2) Anemia Anemia type: unspecified type Qualified Code(s): D64.9 - Anemia, unspecified
[2021-10-12] MEDS: ERTAPENEM SODIUM 1,000 MG in SYRINGE 0 ML IV SCH (15:31)
[2021-10-12] MEDS: ENOXAPARIN INJ 40 MG/0.4 ML SYR SQ SCH (19:27)
[2021-10-13 05:57] LABS: Hematocrit (blood only) 23.9 % (40.1-51.0); Hemoglobin 7.8 g/dl (14.0-18.0); Mean Corpuscular Hemoglobin 30.2 pg (25.0-34.0); Mean Corpuscular Hgb Conc 32.6 g/dL (32.0-36.0); Mean Corpuscular Volume 92.6 fL (80.0-100.0); Mean Platelet Volume 9.8 fL (9.4-12.4); Platelet Count 186 K/uL (130-400); RDW Coefficient of Variation 16.2 % (11.5-14.5); RDW Standard Deviation 54.5 fL (36.4-46.3); Red Blood Count 2.58 M/uL (4.63-6.08)
[2021-10-13 06:18] LABS: BUN Creatinine Ratio 15.6 (10-20); Calcium 7.6 mg/dl (8.5-10.1); Est GFR (African American) 106.5 ml/min; Est GFR (Non-African American) 91.9 ml/min; Magnesium 1.9 mg/dl (1.7-2.4); Potassium 3.9 mmol/L (3.5-5.1)
[2021-10-13] MEDS: POTASSIUM CHLORIDE CRTAB 20 MEQ TABCR PO SCH (07:57)
[2021-10-13] MEDS: ACETAMINOPHEN 325 MG TAB PO PRN ×2 (07:58→19:28)
[2021-10-13] MEDS: FUROSEMIDE 40 MG/4 ML VIAL IV SCH (07:58)
[2021-10-13] MEDS: POLYETHYLENE (MIRALAX) 17 GM PACK PO SCH (07:58)
[2021-10-13] MEDS: MAGNESIUM OXIDE 400 MG TAB PO SCH (07:58)
[2021-10-13] MEDS: FAMOTIDINE 20 MG TAB PO SCH (07:58)
[2021-10-13] MEDS: VANCOMYCIN HCL 2,000 MG in SODIUM CHLORIDE 0.9% 500 ML IV SCH (08:06)
--- NOTE | 2021-10-13 13:37 | Hospitalist Progress Note ---
Date of Service October 13, 2021 Assessment & Plan (1) Perihepatic abscess: Plan: Admitted to [facility] on 09/24/2021--10/03/2021 s/p IR drainage of perihepatic abscess Has a PICC line and has been getting intravenous ertapenem and vancomycin which will be continued until 11/09/2021 Weekly CBC and BMP with vancomycin troughs while on antibiotics Instruction as per [facility] discharge summary Repeat CT tentatively at 4 weeks and will need IR follow-up for drain removal at that time If the drain output diminishes the CT can be done earlier than 4 weeks Not noted in the instructions that the drain should be flushed daily which is being done in this hospital Patient remains stable Will ask PCP to arrange repeat CT as advised from [place] (2) Cholangiocarcinoma: Plan: Has cholangiocarcinoma, 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 Was previously on lisinopril, but taken off during hospitalization. BP normotensive currently (6) Hypoalbuminemia: (7) Anemia: (8) Bilateral lower extremity edema: Plan: continue lasix 40mg IV daily, elevate legs when sitting (9) Peritoneal carcinoma: (10) DVT prophylaxis: Plan: SQ Heparin Plan Disposition- Placement to rehab. Patient is medically stable for discharge pending placement Admission and Anticipated Discharge Date Admission Date: October 05, 2021 Subjective Feels well. Waiting for placement. Remains afebrile Physical Exam Physical Exam: Sitting in chair, no acute distress, pleasant and cooperative Results & Data Results & Data ([facility]) Vital Signs (Past 12 Hours) Vital Signs Temp Pulse Resp BP Pulse Ox O2 Del Method 10/13/21 09:11 Room Air 10/13/21 07:31 36.7 C 101 H 16 132/77 95 Room Air (1) Fall Encounter type: initial encounter Qualified Code(s): W19.XXXA - Unspecified fall, initial encounter (2) Anemia Anemia type: unspecified type Qualified Code(s): D64.9 - Anemia, unspecified
[2021-10-13] MEDS: ERTAPENEM SODIUM 1,000 MG in SYRINGE 0 ML IV SCH (14:29)
[2021-10-13] MEDS: ENOXAPARIN INJ 40 MG/0.4 ML SYR SQ SCH (21:44)
[2021-10-14] MEDS: oxyCODONE HCL IR 5 MG TAB (IMMEDIATE RELEASE) PO PRN (02:33)
[2021-10-14 08:42] LABS: BUN Creatinine Ratio 15.8 (10-20); Calcium 7.7 mg/dl (8.5-10.1); Est GFR (African American) 99.7 ml/min; Est GFR (Non-African American) 86.1 ml/min
[2021-10-14] MEDS: VANCOMYCIN HCL 2,000 MG in SODIUM CHLORIDE 0.9% 500 ML IV SCH (08:57)
[2021-10-14] MEDS: POLYETHYLENE (MIRALAX) 17 GM PACK PO SCH (08:57)
[2021-10-14] MEDS: FAMOTIDINE 20 MG TAB PO SCH (08:57)
[2021-10-14] MEDS: ACETAMINOPHEN 325 MG TAB PO PRN ×2 (12:38→21:05)
[2021-10-14] MEDS: ERTAPENEM SODIUM 1,000 MG in SYRINGE 0 ML IV SCH (14:25)
--- NOTE | 2021-10-14 17:25 | Hospitalist Progress Note ---
Date of Service October 14, 2021 Assessment & Plan (1) Perihepatic abscess: Plan: Admitted to [facility] on 09/24/2021--10/03/2021 s/p IR drainage of perihepatic abscess Has a PICC line and has been getting intravenous ertapenem and vancomycin which will be continued until 11/09/2021 Weekly CBC and BMP with vancomycin troughs while on antibiotics Instruction as per [facility] [place] Repeat CT tentatively at 4 weeks and will need IR follow-up for drain removal at that time If the drain output diminishes the CT can be done earlier than 4 weeks Not noted in the instructions that the drain should be flushed daily which is being done in this hospital Patient remains stable Will ask PCP to arrange repeat CT as advised from [place] (2) Cholangiocarcinoma: Plan: Has cholangiocarcinoma, 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 Check BMP every other day while on lasix (4) Fall: Plan: Will need placement (5) Weakness: Plan: Multifactorial Mainly secondary to carcinoma/chemotherapy/hepatic abscess and leg swelling History of hypertension Continue to monitor BP. Was previously on lisinopril, but taken off during hospitalization. BP normotensive currently (6) Hypoalbuminemia: (7) Anemia: (8) Bilateral lower extremity edema: Plan: continue lasix 40mg IV daily, elevate legs when sitting (9) Peritoneal carcinoma: (10) DVT prophylaxis: Plan: SQ Heparin Plan Disposition- Placement to rehab. Patient is medically stable for discharge pending placement Admission and Anticipated Discharge Date Admission Date: October 05, 2021 Subjective Getting sick of food here, requested to have his diet liberalized. "Can I get something other than fish or chicken?" Feels well Sleeping well Physical Exam Physical Exam: Sitting in chair, no acute distress, non toxic Respiratory: breathing comfortably on room air, no wheezing/rhonchi/rales Cardiovascular: Regular rate and rhythm, no murmurs/rubs/gallops Gastrointestinal (Abdomen): soft, non tender Musculoskeletal: Improved edema Neurologic: awake, alert, spontaneously moving extremities Results & Data Results & Data ([place]) Vital Signs (Past 12 Hours) Vital Signs Temp Pulse Resp BP Pulse Ox O2 Del Method 10/14/21 15:36 36.9 C 86 18 111/63 96 Room Air 10/14/21 09:00 Room Air 10/14/21 07:52 36.7 C 88 19 118/69 94 Room Air Laboratory Results [facility] 10/14/21 07:42 Sodium 136 Potassium 4.0 Chloride 105 Carbon Dioxide 24 BUN 15 Creatinine 0.95 Glucose 94 Calcium 7.7 L Medications Administered Current Inpatient Medications Acetaminophen (Acetaminophen 325 Mg Tab) 650 mg PO Q8H PRN PRN Reason: Pain or Fever Stop: 11/03/21 13:27 Last Admin: 10/14/21 12:38 Dose: 650 mg Al Hydrox/Mg Hydrox/Simethicone (Aluminum/Magnesium Susp 30 Ml Udc) 15 ml PO Q4H PRN PRN Reason: Dyspepsia Stop: 11/03/21 13:27 Enoxaparin Sodium (Enoxaparin Inj 40 Mg/0.4 Ml Syr) 40 mg SQ HS AMANDA Stop: 11/06/21 20:59 Last Admin: 10/13/21 21:44 Dose: 40 mg Famotidine (Famotidine 20 Mg Tab) 20 mg PO DAILY AMANDA Stop: 11/04/21 08:59 Last Admin: 10/14/21 08:57 Dose: 20 mg Heparin Sodium (Beef Lung) (Heparin 10 Unit/Ml 5 Ml Flush) 5 ml FLUSH PRN PRN PRN Reason: Flush Stop: 11/04/21 08:18 Last Admin: 10/07/21 15:43 Dose: 5 ml Ertapenem 1,000 mg/ Syringe 10 mls @ 2 mls/min IV Q24H AMANDA Stop: 11/09/21 08:59 Last Admin: 10/14/21 14:25 Dose: 2 mls/min Vancomycin HCl 2,000 mg/ (Sodium Chloride) 540 mls @ 200 mls/hr IV DAILY@0900 AMANDA Stop: 11/09/21 08:59 Last Infusion: 10/14/21 12:06 Dose: Infused Miscellaneous Information (Vancomycin Consult Active) 1 ea N/A UD PRN PRN Reason: Consult Stop: 11/03/21 13:13 Oxycodone HCl (Oxycodone Hcl Ir 5 Mg Tab (Immediate Release)) 5 mg PO Q8H PRN PRN Reason: MODERATE/SEVERE PAIN Stop: 10/18/21 17:30 Last Admin: 10/14/21 02:33 Dose: 5 mg Polyethylene Glycol (Polyethylene (Miralax) 17 Gm Pack) 17 gm PO DAILY AMANDA Stop: 11/08/21 09:14 Last Admin: 10/14/21 08:57 Dose: Not Given (1) Fall Encounter type: initial encounter Qualified Code(s): W19.XXXA - Unspecified fall, initial encounter (2) Anemia Anemia type: unspecified type Qualified Code(s): D64.9 - Anemia, unspecified
[2021-10-14] MEDS: ENOXAPARIN INJ 40 MG/0.4 ML SYR SQ SCH (21:05)
[2021-10-15] MEDS: ACETAMINOPHEN 325 MG TAB PO PRN ×2 (08:10→16:21)
[2021-10-15] MEDS: FUROSEMIDE 40 MG/4 ML VIAL IV SCH (08:19)
[2021-10-15] MEDS: MAGNESIUM OXIDE 400 MG TAB PO SCH (08:19)
[2021-10-15] MEDS: POLYETHYLENE (MIRALAX) 17 GM PACK PO SCH (08:19)
[2021-10-15] MEDS: POTASSIUM CHLORIDE CRTAB 20 MEQ TABCR PO SCH (08:19)
[2021-10-15] MEDS: FAMOTIDINE 20 MG TAB PO SCH (08:20)
[2021-10-15] MEDS: VANCOMYCIN HCL 2,000 MG in SODIUM CHLORIDE 0.9% 500 ML IV SCH (12:01)
--- NOTE | 2021-10-15 14:15 | Hospitalist Progress Note ---
Date of Service October 15, 2021 Assessment & Plan (1) Perihepatic abscess: Plan: Admitted to [facility] on 09/24/2021--10/03/2021 s/p IR drainage of perihepatic abscess Has a PICC line and has been getting intravenous ertapenem and vancomycin which will be continued until 11/09/2021 Weekly CBC and BMP with vancomycin troughs while on antibiotics Instruction as per [facility] discharge summary Repeat CT tentatively at 4 weeks and will need IR follow-up for drain removal at that time If the drain output diminishes the CT can be done earlier than 4 weeks Not noted in the instructions that the drain should be flushed daily which is being done in this hospital Patient remains stable Will ask PCP to arrange repeat CT as advised from [place] (2) Cholangiocarcinoma: Plan: Has cholangiocarcinoma, 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 Check BMP every other day while on lasix (4) Fall: Plan: Will need placement (5) Weakness: Plan: Multifactorial Mainly secondary to carcinoma/chemotherapy/hepatic abscess and leg swelling History of hypertension Continue to monitor BP. Was previously on lisinopril, but taken off during hospitalization. BP normotensive currently (6) Hypoalbuminemia: (7) Anemia: (8) Bilateral lower extremity edema: Plan: continue lasix 40mg IV daily, elevate legs when sitting (9) Peritoneal carcinoma: (10) DVT prophylaxis: Plan: SQ Heparin Plan Disposition- Placement to rehab. Patient is medically stable for discharge pending placement Admission and Anticipated Discharge Date Admission Date: October 05, 2021 Subjective No new issues. Feels fine. Denies pain. States leg swelling is improving. Normal appetite. no fever, chills, chest pain, shortness of breath Physical Exam Physical Exam: General: Sitting comfortably in chair, not in distress, on room air Chest: Clear breath sounds bilaterally, no wheezes or crackles CVS: Regular rate and rhythm, normal heart sounds, no murmur Abdomen: Soft, non tender, not distended, normal bowel sounds. Right sided intraabd drain with serosang output Neuro: Awake, alert, oriented, conversing well, non focal Extremities: 1+ LE edema Results & Data Results & Data ([facility]) Vital Signs (Past 12 Hours) Vital Signs Temp Pulse Resp BP Pulse Ox O2 Del Method 10/15/21 08:00 Room Air 10/15/21 07:34 36.6 C 90 17 117/70 94 Room Air (1) Fall Encounter type: initial encounter Qualified Code(s): W19.XXXA - Unspecified fall, initial encounter (2) Anemia Anemia type: unspecified type Qualified Code(s): D64.9 - Anemia, unspecified
[2021-10-15] MEDS: ERTAPENEM SODIUM 1,000 MG in SYRINGE 0 ML IV SCH (14:40)
[2021-10-15] MEDS ORDERED: COVID-19 VACC, TRIS(PFIZER)/PF 30 MCG/0.3 ML VIAL IM ONE (16:00)
[2021-10-15] MEDS: ENOXAPARIN INJ 40 MG/0.4 ML SYR SQ SCH (20:35)
[2021-10-15] MEDS: oxyCODONE HCL IR 5 MG TAB (IMMEDIATE RELEASE) PO PRN (23:30)
[2021-10-16] MEDS: MAGNESIUM OXIDE 400 MG TAB PO SCH (08:28)
[2021-10-16] MEDS: POTASSIUM CHLORIDE CRTAB 20 MEQ TABCR PO SCH (08:28)
[2021-10-16] MEDS: FUROSEMIDE 40 MG/4 ML VIAL IV SCH (08:28)
[2021-10-16] MEDS: POLYETHYLENE (MIRALAX) 17 GM PACK PO SCH (08:28)
[2021-10-16] MEDS: VANCOMYCIN HCL 2,000 MG in SODIUM CHLORIDE 0.9% 500 ML IV SCH (08:29)
[2021-10-16] MEDS: FAMOTIDINE 20 MG TAB PO SCH (08:42)
[2021-10-16] MEDS: oxyCODONE HCL IR 5 MG TAB (IMMEDIATE RELEASE) PO PRN (10:43)
[2021-10-16] MEDS: ERTAPENEM SODIUM 1,000 MG in SYRINGE 0 ML IV SCH (15:50)
[2021-10-16] MEDS: ACETAMINOPHEN 325 MG TAB PO PRN (16:32)
--- NOTE | 2021-10-16 17:14 | Hospitalist Progress Note ---
Date of Service October 16, 2021 Assessment & Plan (1) Perihepatic abscess: Plan: Admitted to [facility] on 09/24/2021--10/03/2021 s/p IR drainage of perihepatic abscess Has a PICC line and has been getting intravenous ertapenem and vancomycin which will be continued until 11/09/2021 Weekly CBC and BMP with vancomycin troughs while on antibiotics Instruction as per [facility] discharge summary Repeat CT tentatively at 4 weeks and will need IR follow-up for drain removal at that time If the drain output diminishes the CT can be done earlier than 4 weeks Not noted in the instructions that the drain should be flushed daily which is being done in this hospital Patient remains stable Will ask PCP to arrange repeat CT as advised from [place] (2) Cholangiocarcinoma: Plan: Has cholangiocarcinoma, 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 Check BMP every other day while on lasix (4) Fall: Plan: Will need placement (5) Weakness: Plan: Multifactorial Mainly secondary to carcinoma/chemotherapy/hepatic abscess and leg swelling History of hypertension Continue to monitor BP. Was previously on lisinopril, but taken off during hospitalization. BP normotensive currently (6) Hypoalbuminemia: (7) Anemia: (8) Bilateral lower extremity edema: Plan: continue lasix 40mg IV daily, elevate legs when sitting (9) Peritoneal carcinoma: (10) DVT prophylaxis: Plan: SQ Heparin Plan Disposition- Placement to rehab- has bed for tomorrow. Patient is medically stable for discharge pending placement Admission and Anticipated Discharge Date Admission Date: October 05, 2021 Subjective He feels fine. No new issues. States he is going to rehab tomorrow. No fever, chills, chest pain, shortness of breath. Leg swelling improving. BM yesterday. Physical Exam Physical Exam: General: Sitting comfortably in chair, not in distress, on room air Chest: Clear breath sounds bilaterally, no wheezes or crackles CVS: Regular rate and rhythm, normal heart sounds, no murmur Abdomen: Soft, non tender, not distended, normal bowel sounds. Right sided intraabd drain with serosang output Neuro: Awake, alert, oriented, conversing well, non focal Extremities: mild RLE edema Results & Data Results & Data ([facility]) Vital Signs (Past 12 Hours) Vital Signs Temp Pulse Resp BP Pulse Ox O2 Del Method 10/16/21 14:58 36.8 C 95 H 16 134/78 98 Room Air 10/16/21 07:31 36.7 C 93 H 18 119/71 94 Room Air Medications Administered Current Inpatient Medications Acetaminophen (Acetaminophen 325 Mg Tab) 650 mg PO Q8H PRN PRN Reason: Pain or Fever Stop: 11/03/21 13:27 Last Admin: 10/16/21 16:32 Dose: 650 mg Al Hydrox/Mg Hydrox/Simethicone (Aluminum/Magnesium Susp 30 Ml Udc) 15 ml PO Q4H PRN PRN Reason: Dyspepsia Stop: 11/03/21 13:27 Enoxaparin Sodium (Enoxaparin Inj 40 Mg/0.4 Ml Syr) 40 mg SQ HS AMANDA Stop: 11/06/21 20:59 Last Admin: 10/15/21 20:35 Dose: 40 mg Famotidine (Famotidine 20 Mg Tab) 20 mg PO DAILY AMANDA Stop: 11/04/21 08:59 Last Admin: 10/16/21 08:42 Dose: 20 mg Furosemide (Furosemide 40 Mg/4 Ml Vial) 40 mg IV DAILY AMANDA Stop: 10/18/21 08:59 Last Admin: 10/16/21 08:28 Dose: 40 mg Heparin Sodium (Beef Lung) (Heparin 10 Unit/Ml 5 Ml Flush) 5 ml FLUSH PRN PRN PRN Reason: Flush Stop: 11/04/21 08:18 Last Admin: 10/16/21 15:50 Dose: 5 ml Ertapenem 1,000 mg/ Syringe 10 mls @ 2 mls/min IV Q24H AMANDA Stop: 11/09/21 08:59 Last Admin: 10/16/21 15:50 Dose: 2 mls/min Vancomycin HCl 2,000 mg/ (Sodium Chloride) 540 mls @ 200 mls/hr IV DAILY@0900 AMANDA Stop: 11/09/21 08:59 Last Infusion: 10/16/21 11:46 Dose: Infused Magnesium Oxide (Magnesium Oxide 400 Mg Tab) 400 mg PO QAM AMANDA Stop: 10/18/21 08:59 Last Admin: 10/16/21 08:28 Dose: 400 mg Miscellaneous Information (Vancomycin Consult Active) 1 ea N/A UD PRN PRN Reason: Consult Stop: 11/03/21 13:13 Oxycodone HCl (Oxycodone Hcl Ir 5 Mg Tab (Immediate Release)) 5 mg PO Q8H PRN PRN Reason: MODERATE/SEVERE PAIN Stop: 10/18/21 17:30 Last Admin: 10/16/21 10:43 Dose: 5 mg Polyethylene Glycol (Polyethylene (Miralax) 17 Gm Pack) 17 gm PO DAILY [facility] Stop: 11/08/21 09:14 Last Admin: 10/16/21 08:28 Dose: 17 gm Potassium Chloride (Potassium Chloride Crtab 20 Meq Tabcr) 40 meq PO QAM [facility] Stop: 10/18/21 08:59 Last Admin: 10/16/21 08:28 Dose: 40 meq (1) Fall Encounter type: initial encounter Qualified Code(s): W19.XXXA - Unspecified fall, initial encounter (2) Anemia Anemia type: unspecified type Qualified Code(s): D64.9 - Anemia, unspecified
[2021-10-16] MEDS: ENOXAPARIN INJ 40 MG/0.4 ML SYR SQ SCH (20:24)
[2021-10-17 07:02] LABS: BUN Creatinine Ratio 18.5 (10-20); Calcium 7.8 mg/dl (8.5-10.1); Creatinine Clr Calc Pharmacy 111.3 ml/min; Est GFR (African American) 103.7 ml/min; Est GFR (Non-African American) 89.5 ml/min; Magnesium 1.9 mg/dl (1.7-2.4); Potassium 3.8 mmol/L (3.5-5.1)
--- NOTE | 2021-10-17 07:52 | Pharmacy Report ---
Pharmacy PK ABX Note - Date of Service October 17, 2021 - Assessment and Plan Assessment * 61 year old M receiving vancomycin and ertapenem for treatment of post-ERCP liver abscess (MRSA and mixed aerobic anaerobic milady). * Patient recently diagnosed with metastatic cholangiocarcinoma (delaying chemotherapy at this time in light of infection). Recently hospitalized at [facility] in [place] (09/24-10/03/21). Vancomycin/ertapenem initiated during that time by ID with recommendations to continue vancomycin 2 g IV q24h and ertapenem 1 g IV q24h as an outpatient. * Pertinent microbiologic data includes: liver abscess (09/24) - MRSA. * Day # 22 of antimicrobial therapy (continued from prior hospitalization/outpatient setting). Treatment to be continued until 11/09/21 per [facility] [place]. Plan Vancomycin * Random level of 16.0 mcg/mL this am * Continue previous regimen of vanco 2000 mg IV q24h * Check next drug level in several days if patient remains inpatient Ertapenem * Continue 1000 mg IV q24h Pharmacy will continue to follow and will adjust dose/frequency as necessary. Thank you. Pharmacy has transitioned to AUC monitoring for vancomycin. AUC/PEDRO is the preferred PK/PD target and is associated with decreased risk of nephrotoxicity compared to traditional trough targets.
[2021-10-17] MEDS ORDERED: VANCOMYCIN LEVEL ONE (08:00)
[2021-10-17] MEDS: FUROSEMIDE 40 MG/4 ML VIAL IV SCH (08:31)
[2021-10-17] MEDS: POTASSIUM CHLORIDE CRTAB 20 MEQ TABCR PO SCH (08:31)
[2021-10-17] MEDS: FAMOTIDINE 20 MG TAB PO SCH (08:31)
[2021-10-17] MEDS: MAGNESIUM OXIDE 400 MG TAB PO SCH (08:32)
[2021-10-17] MEDS: VANCOMYCIN HCL 2,000 MG in SODIUM CHLORIDE 0.9% 500 ML IV SCH (08:32)
[2021-10-17] MEDS: POLYETHYLENE (MIRALAX) 17 GM PACK PO SCH (08:32)
[2021-10-17] MEDS: oxyCODONE HCL IR 5 MG TAB (IMMEDIATE RELEASE) PO PRN ×2 (10:56)
--- NOTE | 2021-10-17 12:02 | Discharge Summary ---
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 Today, he presented to the ER after being at home and falling last night. He stood up off of the couch at home, and he fell on his bottom. His feet went out from under him, but he did not have a syncopal episode. He did not hit his head. His buttocks does not hurt where he fell. He fell onto carpet. He notes that his feet have been very swollen since he got home. He recently was seen at [place] [facility] for abdominal pain on 09/23. He had a CT scan done which showed the perihepatic abscess. He was then transferred to [place] for IR drainage. He had the abscess drained, and culture grew MRSA. He required second drainage. He was discharged home from [facility] yesterday morning with a PICC line and plan for abx at the [facility] here at [facility]. He has been weak/tired since prior admission, and even more when he got home. He has had some mild dry feeling in his throat but no sore throat or trouble swallowing. No chest pain, palpitations. He does have some right sided abdominal pain into the mid abdomen where his IR drain is located and where the abscess was. No dysuria. No diarrhea or constipation- he has been taking Miralax. No calf pain B/L. He does have a scratch on his back as well s/p fall. No other injury. Since admission, note that his CXR showed moderate right pleural effusion with atelectasis in the RML and RLL. Mild vascular congestion noted as well. His friend, Stacie ([phone]) is at the bedside with him. He would like her to be his POA if needed. Admission Exam Per Admitting Provider GENERAL: Alert and oriented x3. NAD, on RA. Obese HEENT: No pallor, no icterus. Pupils equal, round and reactive to light. Oral mucosa moist. NECK: No JVD, no neck masses. HEART: S1 and S2 heard. Regular rate and rhythm. No murmur, no gallop. RESPIRATORY SYSTEM: Normal AP diameter. No accessory muscle use. No wheezing, no crackles. decreased Rt mid and lower lungs breath sounds. ABDOMEN: Soft, bowel sounds present, nontender, no distention. Rt hepatic drain w/ minimal erythema at port of entry, no significant tenderness. Pus and serous hepatic drain approx 40 ml noted in the bag. CENTRAL NERVOUS SYSTEM: No facial droop. Speech is clear. Obeys simple comma nds. Moves extremities. EXTREMITIES: 2-3+ BLE edema, no erythema seen. b/l hands with psoriatic arthritic changes. Principal Diagnosis Perihepatic abscess, cholangiocarcinoma, peritoneal carcinoma, fall, weakness, bilateral leg edema Discharge Exam General: Sitting comfortably in chair, not in distress, on room air Chest: Clear breath sounds bilaterally, no wheezes or crackles CVS: Regular rate and rhythm, normal heart sounds, no murmur Abdomen: Soft, non tender, not distended, normal bowel sounds. Right sided intraabd drain with serosang output Neuro: Awake, alert, oriented, conversing well, non focal Extremities: mild RLE edema Discharge Data Allergies Allergy/AdvReac Type Severity Reaction Status Date / Time No Known Allergies Allergy Unverified 10/04/21 08:44 Consultations 10/04/21 13:14 ED Decision to Admit Stat Ordered Studies Laboratory Results WBC 7.60 K/ul (4.8-10.8) 10/13/21 05:36 RBC 2.58 M/uL (4.63-6.08) L 10/13/21 05:36 Hgb 7.8 g/dl (14.0-18.0) L 10/13/21 05:36 Hct 23.9 % (40.1-51.0) L 10/13/21 05:36 MCV 92.6 fL (80.0-100.0) 10/13/21 05:36 MCH 30.2 pg (25.0-34.0) 10/13/21 05:36 MCHC 32.6 g/dL (32.0-36.0) 10/13/21 05:36 RDW Std Deviation 54.5 fL (36.4-46.3) H 10/13/21 05:36 RDW Coeff of [place] 16.2 % (11.5-14.5) H 10/13/21 05:36 Plt Count 186 K/uL (130-400) 10/13/21 05:36 MPV 9.8 fL (9.4-12.4) 10/13/21 05:36 Immature Gran % (Auto) 0.8 % 10/08/21 07:30 Neut % (Auto) 71.8 % 10/08/21 07:30 Lymph % (Auto) 16.6 % 10/08/21 07:30 Leslie % (Auto) 9.9 % 10/08/21 07:30 Eos % (Auto) 0.2 % 10/08/21 07:30 Baso % (Auto) 0.7 % 10/08/21 07:30 Neut # (Auto) 7.65 K/uL (1.4-6.5) H 10/08/21 07:30 Lymph # (Auto) 1.76 K/uL (1.2-3.4) 10/08/21 07:30 Leslie # (Auto) 1.05 K/uL (0.24-0.82) H 10/08/21 07:30 Eos # (Auto) 0.02 K/uL (0-0.50) 10/08/21 07:30 Baso # (Auto) 0.07 K/uL (0-0.2) 10/08/21 07:30 Immature Gran # (Auto) 0.08 K/uL (0.00-0.02) H 10/08/21 07:30 Sodium 136 mmol/L (136-145) 10/17/21 05:35 Potassium 3.8 mmol/L (3.5-5.1) 10/17/21 05:35 Chloride 105 mmol/L (98-107) 10/17/21 05:35 Carbon Dioxide 26 mmol/L (21-32) 10/17/21 05:35 Anion Gap 5 (3-11) 10/17/21 05:35 BUN 17 mg/dl (6-23) 10/17/21 05:35 Creatinine 0.92 mg/dl (0.6-1.4) 10/17/21 05:35 Est Cr Clr Drug Dosing 111.3 ml/min 10/17/21 05:35 Est GFR ( Amer) 103.7 ml/min 10/17/21 05:35 Est GFR (Non-Af Amer) 89.5 ml/min 10/17/21 05:35 BUN/Creatinine Ratio 18.5 (10-20) 10/17/21 05:35 Glucose 91 mg/dl (70-99(Fasting)) 10/17/21 05:35 Calcium 7.8 mg/dl (8.5-10.1) L 10/17/21 05:35 Phosphorus 3.0 mg/dl (2.5-4.9) 10/06/21 06:30 Magnesium 1.9 mg/dl (1.7-2.4) 10/17/21 05:35 Total Bilirubin 0.7 mg/dl (0.2-1.0) 10/07/21 07:38 AST 37 U/L (13-39) 10/07/21 07:38 ALT 20 U/L (7-52) 10/07/21 07:38 Alkaline Phosphatase 126 U/L (34-104) H 10/07/21 07:38 Troponin I High Sens 7.4 pg/ml (0-20) 10/04/21 11:15 B-Natriuretic Peptide 48 pg/ml (0-100) 10/04/21 12:51 Total Protein 7.0 gm/dl (6.0-8.3) 10/07/21 07:38 Albumin 2.6 gm/dl (3.4-5.0) L 10/07/21 07:38 Globulin 4.4 gm/dl (2.5-4.0) H 10/07/21 07:38 Albumin/Globulin Ratio 0.6 (0.9-2) L 10/07/21 07:38 Lipase 17 U/L (11-82) 10/04/21 11:15 Urine Color Yellow 10/05/21 18:23 Urine Appearance Clear (Clear) 10/05/21 18: Urine pH 6.5 (4.5-7.5) 10/05/21 18:23 Ur Specific [place] 1.012 (1.000-1.030) 10/05/21 18:23 Urine Protein Negative (Negative) 10/05/21 18: Urine Glucose (UA) Negative (Negative) 10/05/21 18: Urine Ketones Negative (Negative) 10/05/21 18:23 Urine Blood 1+ (Negative) H 10/05/21 18:23 Urine Nitrite Negative (Negative) 10/05/21 18:23 Urine Bilirubin Negative (Negative) 10/05/21 18: Urine Urobilinogen Negative (Negative) 10/05/21 18:23 Ur Leukocyte Esterase Negative (Negative) 10/05/21 18:23 Urine WBC (Auto) 1-5 /hpf (0-5) 10/05/21 18:23 Urine RBC (Auto) 5-10 /hpf (0-4) H 10/05/21 18:23 U Hyaline Cast (Auto) 0 /lpf (0-5) 10/05/21 18:23 U Epithel Cells (Auto) 5-10 /lpf (0-5) H 10/05/21 18:23 Urine Bacteria (Auto) Negative (Negative) 10/05/21 18:23 Random Vancomycin 16.0 mcg/ml (10-20) 10/17/21 05:35 SARS-CoV-2, RNA, NAAT NEGATIVE (NEGATIVE) 10/16/21 15:40 Impressions Pelvis X-Ray 10/04/21 11:12 XR pelvis 1-2V routine CLINICAL HISTORY: fall. Right-sided pelvic pain COMPARISON STUDY: No previous studies for comparison. TECHNIQUE: [2 AP views of the pelvis FINDINGS: There is no evidence for an acute fracture. However, the femoral necks or not elongated as the legs were not in internal rotation. The hip joint spaces are maintained bilaterally and the bones are in anatomic alignment. The SI joints are intact bilaterally. The remaining visualized bones of the pelvis are intact. No focal soft tissue abnormalities identified. IMPRESSION: 1. No acute abnormality. However, if pain persists, CT of the pelvis could be obtained for further evaluation. ACT 112: Negative or not required by law. Electronically signed by: Rory Shaffer M.D. 10/04/2021 11:55 AM Chest X-Ray 10/04/21 11:13 XR chest 1V portable CLINICAL HISTORY: Weakness with leg swelling. Evaluate for congestive heart failure. COMPARISON STUDY: No previous studies for comparison. TECHNIQUE: 1 view of the chest FINDINGS: Single frontal view of the chest demonstrates the cardiomediastinal silhouette to be within normal limits. There is evidence for a moderate size right pleural effusion with compressive atelectasis/collapse involving the right middle and right lower lobes. Mild central vascular congestion is also present. There is no evidence for left pleural effusion. No confluent alveolar opacities are identified. There is no acute osseous pathology. IMPRESSION: 1. Moderate size right pleural effusion with compressive atelectasis/collapse involving the right middle and right lower lobes. 2. Mild central vascular congestion. ACT 112: Negative or not required by law. Electronically signed by: Rory Shaffer M.D. 10/04/2021 11:56 AM Hospital Course (1) Perihepatic abscess: Admitted to [facility] on 09/24/2021--10/03/2021 s/p IR drainage of perihepatic abscess Has a PICC line and has been getting intravenous ertapenem and vancomycin to be continued until 11/09/2021 Weekly CBC and BMP with vancomycin troughs while on antibiotics Instruction as per [facility] discharge summary Repeat CT tentatively at 4 weeks from date of discharge 09/03 and will need IR follow-up for drain removal at that time If the drain output diminishes the CT can be done earlier than 4 weeks Not noted in the instructions that the drain should be flushed daily which is being done in this hospital Patient remains stable Will ask PCP to arrange repeat CT as advised from [place] (2) Cholangiocarcinoma: Has cholangiocarcinoma, peritoneal carcinoma on chemotherapy Chemotherapy is on hold due to current infection Overall prognosis is guarded (3) Pleural effusion: TTE-EF of 60 to 65%, there is mild concentric LVH, and no significant valvular pathology started lasix 40mg IV daily 10/08 with improvement of lower extremity edema- labs stable Will discharge on lasix 40 mg daily with potassium supplementation- recommend repeat BMP while on diuresis- If Cr trends up or edema resolved, recommend discontinuation of the diuretics. (4) Fall: (5) Weakness: Multifactorial Mainly secondary to carcinoma/chemotherapy/hepatic abscess and leg swelling History of hypertension Continue to monitor BP. Was previously on lisinopril, but taken off during hospitalization. BP normotensive currently (6) Hypoalbuminemia: (7) Anemia: (8) Bilateral lower extremity edema: likely contributed by malnutrition and his intraabdominal malignancy. s/p iv lasix, discharged on po lasix as state above. Recommended adequate nutrition intake and possibly dietitian eval. (9) Peritoneal carcinoma: Plan He is comfortable and stable for discharge. Discharge instructions updated and also informed patient at discharge regarding overall plan of care as well as timing of repeat CT and IR eval Total Time Total Time Spent Total Time Spent (In Minutes): 50 Discharge Plan Discharge Items Patient Disposition: Transfer Detention Fac Reason For Visit: WEAKNESS Discharge Diagnosis: Perihepatic abscess, cholangiocarcinoma, peritoneal carcinoma, leg swelling, fall Activity: Resume your previous activity Non-emergency contact: Primary Care Provider Call non-emergency contact if: you have any medication questions, your symptoms worsen, your pain is not controlled, you have a fever, your wound has increased redness and your wound has increased drainage Follow-up/Referrals: Murtaza Bazan V., [Primary Care Provider] - Diet: Regular Addtl Attending Provider Instructions: Continue IV vancomycin and ertapenem until 11/09/21 Weekly labs (CBC with differential, BMP and vancomycin trough while on the antibiotic) Repeat CT tentatively in 2 weeks and will need IR follow-up for drain removal at that time If the drain output diminishes the CT can be done earlier than 2 weeks Drain should be flushed daily Lasix daily as needed for the leg swelling- please consider discontinuation of lasix and potassium supplementation if the leg swelling is resolved or the kidney function (Cr) trends up. Please arrange for repeat CT as advised from [facility] Pending Studies at Discharge: No Stand-Alone Forms: My [facility] Skilled Items Patient informed of condition?: Yes DNR: No Discharge Level of Care: Skilled Communicable Disease: No Discharge Prognosis: Stable Lines: PICC Urinary Catheter: No Medications and DC Order Prescriptions: New magnesium oxide 400 mg (241.3 mg magnesium) Tablet 400 mg PO QAM Qty: 30 0RF oxycodone 5 mg Tablet 5 mg PO Q8H PRN (Reason: pain) Qty: 10 0RF furosemide [Lasix] 40 mg tablet 40 mg PO DAILY Qty: 30 0RF potassium chloride 20 mEq Tablet,Er Particles/Crystals 40 meq PO QAM Qty: 30 0RF Continued acetaminophen 500 mg Tablet 500 mg PO QID PRN (Reason: Pain) famotidine 20 mg Tablet 20 mg PO DAILY Discontinued OxyContin 10 mg Tablet Extended Release 12 Hr 10 mg PO Q8 PRN (Reason: Pain) Discharge Orders: Discharge Order (Routine); Ordered 10/17/21 Ordered By: Rafiq Ring Admission Data Admit Date/Time: 10/05/21 09:06 Attending Provider: Rafiq Ring Admit Provider: [place] Primary Care Provider: Murtaza Bazan V. Other Providers: [place] ; Venkat Sharma Other Interventions: Discharge Summary Assessment (RN) Last Done: 10/17/21 10:19
== END 2021-10-17 11:35 | DRG 442 ==
LOC: 2W 10:54 → ED 10:54 → SUATTDRO 13:29 → 2W 14:55 → SUATTDRO 10-05 09:06 → 2W 10-12 19:10 → 3N 10-14 21:44